=== PATIENT | male | born 1940 | race Caucasian/White ===

== ENCOUNTER 2025-02-01 14:00 | Outpatient (CLI) | payer MEDICARE, SELFPAY ==
--- OUTSIDE RECORDS SUMMARY | 2025-02-01 14:02 | XMS_ITS | Encounter Summary ---
Author Organization Healthcare Address [address] [place] [address] Care Team Providers Care Angiography Technologist Name Role Phone Pcp, No Primary Care Provider Unavailabl e Encounter Details Date Type Department Care Team (Late Contact Info) Description 10/07/2023 Lab Requisition [facility] [address] [place] [address] Lui Romeo MD [address] [place], [place] [id number] Encounter for general adult medical examination without abnormal findings Social History Tobacco Use Types Packs/Day Years Used Date Smoking Tobacco: Never Assessed Sex and Gender Information Value Date Recorded Sex Assigned at Not on file Legal Sex Male 8:16 PM EDT Gender Identity Not on file Sexual Orientation Not on file documented as of this encounter Plan of Treatment Upcoming Encounters Date Type Department Care Team (Late Contact Info) Description 05/07/2025 1:00 PM EST Consult Medical Office Building Surgical Specialties [address] [facility], [address] [place] [phone] Juan Zheng MD [facility] [address] documented as of this encounter Procedures Procedure Name Priority Date/Time Associated Diagnosis Comments ADDITIONAL SUSCEPTIBILITIES AND/OR IDENTIFICATION Routine 10/02/2023 9:27 AM EDT Encounter for general adult medical examination without abnormal findings ADDITIONAL SUSCEPTIBILITIES AND/OR IDENTIFICATION Routine 10/02/2023 9:27 AM EDT Encounter for general adult medical examination without abnormal findings ADDITIONAL SUSCEPTIBILITIES AND/OR IDENTIFICATION Routine 10/02/2023 9:27 AM EDT Encounter for general adult medical examination without abnormal findings documented in this encounter Results * (ABNORMAL) Additional Susceptibilities and/or Identification (10/02/2023 9:27 AM EDT) Culture Bacteroides thetaiotaomicron group(A) 10/08/2023 2:15 PM EDT [facility] Comment:This isolate has bee n identified using the FDA Approved MALDI BEW Globalyper CA System Blood 10/02/2023 9:27 AM EDT 10/07/2023 10:19 AM EDT Lui Romeo MD LAB MICROBIOLOGY - GENERAL OR DERABLES Final Result Performing Organization Address [facility] de Phone Number [facility] [address] [place] [address] * (ABNORMAL) Additional Susceptibilities and/or Identification (10/02/2023 9:27 AM EDT) Culture Clostridium innocuum(A) 10/08/2023 2:15 PM EDT [facility] Comment:This isolate has bee n identified using the FDA Approved MALDI BEW Globalyper CA System Blood 10/02/2023 9:27 AM EDT 10/07/2023 10:19 AM EDT Lui Romeo MD LAB MICROBIOLOGY - GENERAL OR DERABLES Final Result Performing Organization Address [facility] de Phone Number [facility]ALTHCARE [facility] [address] [place] [address] * (ABNORMAL) Additional Susceptibilities and/or Identification (10/02/2023 9:27 AM EDT) Culture Anaerobic gram negative torrie(A) 10/08/2023 2:15 PM EDT [facility] Comment: Note: - final ID=Phocaeicola [email or web address] This result was determined by MALDI tof mass spectrometry using the Vino Volo database and is for research use only. The organism value for this result has been updated. These results have been appended to the previously preliminary verified report. Blood 10/02/2023 9:27 AM EDT 10/07/2023 10:19 AM EDT us Lui Romeo MD LAB MICROBIOLOGY - GENERAL OR DERABLES Final Result [facility] [address] [place] [address] documented in this encounter Visit Diagnoses Diagnosis Encounter for general adult medical examination without abnormal findings documented in this encounter Care Teams Angiography Technologist Relationship Specialty Start Date End Date Pcp, No [address] [place] [address] PCP - General Family Medicine 10/02/23 documented as of this encounter
--- OUTSIDE RECORDS SUMMARY | 2025-02-01 14:02 | XMS_ITS | Encounter Summary ---
[facility] Organization [facility] Address [address] [place] [id number] Care Team Providers Care Printed Circuit Boards Laminator Name Role Phone Christofer William RESIDENT ASSISTANT Primary Care Provi blanca Encounter Details Date Type Department Care Team (Late st Contact Info) Description 10/09/2024 Results Follow-Up [facility] C[facility]IOLOG[facility] [address] [place] [phone] Marii Pandya MD [address] [place] [address] Social History Tobacco Use Types Packs/Day Years Used Date Smoking Tobacco: Former Cigarettes 1 10 Passive Smoke Exposure: Past Smokeless Tobacco: Former Chew Alcohol Use Standard Drinks/Week Comments Never 0 (1 standard drink = 0.6 oz pur e alcohol) Sex and Gender Information Value Date Recorded Sex Assigned at Not on file Legal Sex Male 7:45 AM EDT Gender Identity Not on file Sexual Orientation Not on file documented as of this encounter Plan of Treatment Upcoming Encounters Date Type Department Care Team (Late st Contact Info) Description 02/19/2025 2:30 PM EDT Office Visit [facility] C[facility] [address] [place] [place] [phone] Marii Pandya MD [address] [place] [address] 03/05/2025 1:30 PM EDT Office Visit [facility] ORTHOPEDICS & SPORTS MEDICINE [address] [place] [address] Diego Ayala MD [address] [id number] documented as of this encounter Visit Diagnoses Not on filedocumented in this encounter Care Teams Printed Circuit Boards Laminator Relationship Specialty Start Date End Date Christofer William APRN [address] [place] [address] [place] [address] PCP - General Nurse Practitioner 05/04/22 documented as of this encounter
--- OUTSIDE RECORDS SUMMARY | 2025-02-01 14:02 | XMS_ITS | Clinical Summary ---
Author Organization Healthcare Address [address] [place] [address] Care Team Providers Care Facetor Name Role Phone Pcp, No Primary Care Provider Unavailabl e Social History Tobacco Use Types Packs/Day Years Used Date Smoking Tobacco: Never Assessed Sex and Gender Information Value Date Recorded Sex Assigned at Not on file Legal Sex Male 8:16 PM EDT Gender Identity Not on file Sexual Orientation Not on file Last Filed Vital Signs Vital Sign Reading Time Taken Comments Blood Pressure 134/68 10/02/2023 7:35 PM EDT Pulse 60 10/02/2023 7:35 PM EDT Temperature 36.6 C (97.8 F) 10/02/2023 7:35 PM EDT Respiratory Rate 19 10/02/2023 7:35 PM EDT Oxygen Saturation 91% 10/02/2023 7:35 PM EDT Inhaled Oxygen Concentration - - Weight 77.1 kg (170 lb) 10/02/2023 1:29 PM EDT Height 182.9 cm (6') 10/02/2023 1:29 PM EDT Body Mass Index 23.06 10/02/2023 1:29 PM EDT Plan of Treatment Upcoming Encounters Date Type Department Care Team (Late st Contact Info) Description 05/07/2025 1:00 PM EST Consult Medical Office Building Surgical Specialties [address] [facility], [address] [place] [address] Juan Zheng MD [address] [address] Health Maintenance Due Date Last Done Comments [facility]-Depression Screening 1940 [facility]-/Child/Adol SDOH Screenings 1940 [facility]- SDOH Screenings 09/05/1957 [facility]-Adult SDOH Screenings 09/05/1957 [facility]-RSV Vaccine: 60+ Years or (1 - 1-dose 75+ series) 09/05/2014 [facility]-Zoster Vaccines (3 of 3) 07/29/2018 06/03/2018, 07/24/2009 [facility]-Medicare Annual Wellness (AWV) 09/23/2023 09/22/2022 [id number] Vaccine ( - season) 2024 03/13/2024, 12/25/2021, 03/03/2021, Additional history exists [facility]-Influenza Vaccine (#1) 01/29/202503/13, 04/10/2021, 03/18/2020, Additional history exists [facility]-DTaP,Tdap,and Td Vaccines (3 - Td or Tdap) 09/22/2032 09/22/2022, 06/04/2014, 03/30/2012, Additional history exists [facility]-Pneumococcal Vaccine: 50+ Years Completed 04/30/2017, 12/10/2016, 10/01/2014, Additional history exists [facility]-Hepatitis A Vaccines Aged Out 12/08/2018, 04/30 No longer eligible based on patient's age to complete this topic HPV Vaccines Aged Out No longer eligi ble based on patient's age to complete this topic [facility]-HIB Vaccines Aged Out No longer e ligible based on patient's age to complete this topic [facility]-IPV Vaccines Aged Out No longer e ligible based on patient's age to complete this topic [facility]-Rotavirus Vaccines Aged Out No lo nger eligible based on patient's age to complete this topic Insurance MEDICARE Care Teams Facetor Relationship Specialty Start Date End Date Pcp, Xiomara [address] [place] [address] PCP - General Family Medicine 10/02/23
--- OUTSIDE RECORDS SUMMARY | 2025-02-01 14:02 | XMS_ITS | Encounter Summary ---
Author Organization Healthcare Address [address] [place] [address] Care Team Providers Care Ice Cream Machine Operator Name Role Phone Pcp, No Primary Care Provider Unavailabl e Encounter Details Date Type Department Care Team (Late Contact Info) Description 10/12/2023 Lab Requisition [facility] [address] [place] [address] Lui Romeo MD [address] [place] [address] Encounter for general adult medical examination without [...] Medical Office Building Surgical Specialties [address] [facility], [address] [place] [phone] Juan Zheng MD [facility] [address] documented as of this encounter Procedures Procedure Name Priority Date/Time Associated Diagnosis Comments ADDITIONAL SUSCEPTIBILITIES AND/OR IDENTIFICATION Routine 10/02/2023 9:02 AM EDT Encounter for general adult medical examination without abnormal findings documented in this encounter Results * (ABNORMAL) Additional Susceptibilities and/or Identification (10/02/2023 9:02 AM EDT) Culture Cutibacterium acnes (formerly Propionibacterium acnes)(A) 10/14/2023 11:42 AM EDT [facility] Comment:This result was dete rmined by MALDI tof mass spectrometry using the Adeptence database and is for research use only. Culture Alistipes species(A) 09/28 11:42 AM EDT [facility] Comment: This result was determined by MALDI tof mass spectrometry using the Adeptence database and is for research use only. Note: - final ID= Alistipes putredinis Blood 10/02/2023 9:02 AM EDT 10/12/2023 10:47 AM EDT us Lui Romeo MD LAB MICROBIOLOGY - GENERAL OR DERABLES Final Result [facility] [address] [place] [address] documented in this encounter Visit Diagnoses Diagnosis Encounter for general adult medical examination without abnormal findings documented in this encounter Care Teams Ice Cream Machine Operator Relationship Specialty Start Date End Date Pcp, No [address] [place] [address] PCP - General Family Medicine 10/02/23 documented as of this encounter
--- OUTSIDE RECORDS SUMMARY | 2025-02-01 14:02 | XMS_ITS | Clinical Summary ---
Author Organization [facility] Address [address] [place] [id number] Care Team Providers Care Program Project Analyst Name Role Phone Christofer William INSPECTORS AND REGULATORY OFFICERS Primary Care Provi blanca Allergies Active Allergy Reactions Criticality Noted Date Comments Penicillins Other (See Comments) 03/17/2021 Makes the patient feel funny Medications atorvastatin (LIPITOR) 10 MG tablet Take 1 tablet by mouth every night at bedtime. 1 Active omeprazole (priLOSEC) 20 MG capsule Take 2 capsules by mouth Daily. 1 Active tamsulosin (FLOMAX) 0.4 MG capsule 24 hr capsule Daily. 2 Active levocetirizine (XYZAL) 5 MG tablet Take 1 tablet by mouth Every Evening. 2 Active multivitamin with minerals tablet tablet Take 1 tablet by mouth Daily. Active aspirin 81 MG EC tablet Take 1 tablet by mouth Daily. Active docusate sodium (COLACE) 100 MG capsule Take 1 capsule by mouth 2 (Two) Times a Day. Active lisinopril-hydro chlorothiazide (PRINZIDE,ZESTOR ETIC) 20-12.5 MG per tabletIndication s:Hypertension, unspecified type,Ascending aorta dilation Take 1 tablet by mouth Daily. 30 tablet 11 5 Active Symbicort 160-4.5 MCG/ACT inhaler Inhale 2 puffs twice a day by inhalation route. 5 Active Magnesium Oxide -Mg Supplement 400 (240 Mg) MG tablet Take 1 tablet by mouth Daily. 5 Active nystatin (MYCOSTATIN) 419828 UNIT/GM cream apply to the affected area(s) by topical route 2 times per day 5 Active Active Problems Problem Noted Date Diagnosed Date Ascending aorta dilation 03/07/2024 Assessment & Plan (08/17/2024 5:06 PM EDT): Orders: CT Angiogram Chest; Future Assessment & Plan (07/05/2024 6:56 PM EST): We were aware of this and monitoring it already. He is status CAT scan in August and 1 in January showing that it is stable. To minimize radiation we are going to repeat this again in August. Orders: lisinopril-hydrochlorothiazide (PRINZIDE,ZESTORETIC) 20-12.5 MG per tablet; Take 1 tablet by mouth Daily. Assessment & Plan (03/07/2024 2:25 PM EDT): Aneurysmal dilation of the ascending aorta noted on recent CT scan and Echocardiogram. -We will continue to monitor Degenerative arthritis of right knee 05/07/2021 Hypertension Assessment & Plan (07/05/2024 6:56 PM EST): Going to add lisinopril hctz and take lasix only prn. Want to keep his blood pressure under good control because of aneurysm. Orders: lisinopril-hydrochlorothiazide (PRINZIDE,ZESTORETIC) 20-12.5 MG per tablet; Take 1 tablet by mouth Daily. Assessment & Plan (03/07/2024 2:23 PM EDT): Hypertension is stable and controlled Continue current treatment regimen. Regular aerobic exercise. Blood pressure will be reassessed in 3 months. Assessment & Plan (08/10/2022 3:57 PM EDT): Hypertension is well controlled, blood pressures 124/74. Continue current medications. Athscl heart disease of chencho ve coronary artery w/o ang pctrs Assessment & Plan (03/07/2024 2:23 PM EDT): Coronary artery disease is stable. Continue current treatment regimen. Regular aerobic exercise. Cardiac status will be reassessed in 6 months. Assessment & Plan (08/10/2022 3:56 PM EDT): Coronary artery disease is stable. Cardiac status will be reassessed in 6 months. Continue current therapy. SOB (shortness of breath) Assessment & Plan (03/07/2024 2:22 PM EDT): He was admitted to [facility] on 02/25/2024 with shortness of breath after recent cholecystectomy surgery (02/22/2024). Evaluation in the ER was concerning for fluid overload, possibly flash pulmonary edema and he also had an elevated D-dimer. He was admitted for further testing and evaluation. CTA of chest did not show any PE. However, he did remain slightly hypoxic (91-92%) and was placed on oxygen. He is now using home oxygen at night. Echocardiogram showed normal LV size and function, mild to moderate aortic root dilation and mild aortic regurgitation. We discussed updating stress test due to worsening shortness of breath. However, it is most likely due to COPD and recent surgery. We discussed that he may need to use oxygen throughout the day as needed. He would like to hold off on any further testing at this time - Follow-up in 3 months to reassess symptoms. Report if symptoms worsen prior to follow-up visit Family History Medical History Relation Name Comments No Known Problems Father No Known Problems Mother Heart disease Other FAMILY HISTORY Relation Name Status Comments Brother X2 (Age 70) 1 BROTHER AT 70- MI1 BROTHER AT 44- CANCER Father (Age 92) Mother (Age 86) Other FAMILY HISTORY Social History Tobacco Use Types Packs/Day Years Used Date Smoking Tobacco: Former Cigarettes 1 10 Passive Smoke Exposure: Past Smokeless Tobacco: Former Chew Tobacco Cessation:Counseling Given: No Alcohol Use Standard Drinks/Week Comments Never 0 (1 standard drink = 0.6 oz pur e alcohol) Sex and Gender Information Value Date Recorded Sex Assigned at Not on file Legal Sex Male 7:45 AM EDT Gender Identity Not on file Sexual Orientation Not on file Last Filed Vital Signs Vital Sign Reading Time Taken Comments Blood Pressure 116/68 10/30/2024 1:05 PM EDT Pulse 84 08/16/2024 2:31 PM EDT Temperature - - Respiratory Rate - - Oxygen Saturation 90% 08/16/2024 2:31 PM EDT Inhaled Oxygen Concentration - - Weight 70.4 kg (155 lb 3.2 oz) 10/30/2024 1:05 P M EDT Height 174.6 cm (5' 8.74 ) 10/30/2024 1:05 PM ED T Body Mass Index 23.09 10/30/2024 1:05 PM EDT Plan of Treatment Upcoming Encounters Date Type Department Care Team (Late st Contact Info) Description 02/19/2025 2:30 PM EDT Office Visit [facility] CARDIOLOGY [address] [place] [phone] Marii Pandya MD [address] [place] [address] 03/05/2025 1:30 PM EDT Office Visit [facility] ORTHOPEDICS & SPORTS MEDICINE [address] [place] [address] Diego Macedo MD [address] [place] [address] Health Maintenance Due Date Last Done Comments RSV Vaccine - Adults (1 - 1- dose 75+ series) 09/05/2014 ANNUAL WELLNESS VISIT 09/23/2023 09/22/2022 COVID-19 Vaccine (2023-2 5 season) 2024 03/13/2024, 12/25/2021, 03/03/2021, Additional history exists INFLUENZA VACCINE 02/28/2025 03/13/2024, , 02/24/2022, Additional history exists TDAP/TD VACCINES (4 - Td or Tdap) 09/22/2032 09/22/2022, 03/30/2012, 02/26/2003 Pneumococcal Vaccine 50+ Completed 017, 10/01/2014, 06/24/2007 ZOSTER VACCINE Completed 06/03/2018, 12/29, 07/24/2009 Insurance [facility] Medicare [employer] PPO Care Teams Program Project Analyst Relationship Specialty Start Date End Date Christofer William APRN [address] [place] [address] PCP - General Nurse Practitioner 05/04/22
[2025-02-01 16:07] LABS: Free T4 (Free Thyroxine) 0.90 ng/dl (0.78-2.19)
[2025-02-01 16:14] LABS: Thyroid Stimulating Hormone 1.13 uIU/mL (0.465-4.68)
== END 2025-02-01 23:59 | disposition home or self-care (01) ==
LOC: LAB 14:00
PROVIDERS: PCP Nurse Practitioner Family; Visit Provider Student in an Organized Health Care Education/Training Program
DX: E04.1 Nontoxic single thyroid nodule (principal)
CPT/HCPCS: 36415; 84439; 84443

== ENCOUNTER 2025-02-09 13:18 | Outpatient (CLI) | payer MEDICARE, SELFPAY ==
--- OUTSIDE RECORDS SUMMARY | 2025-02-09 13:24 | XMS_ITS | Encounter Summary ---
Author Organization [employer] ([place], [place], [place], [place]) Address [address] [place] [address] Care Team Providers Care Construction Electrician Name Role Phone Unavailable Primary Care Provider Unavailabl e Encounter Details Date Type Department Care Team (Late st Contact Info) Description 10/03/2020 Transcribed Document [facility] [place] [facility] [place] [address] ProviderAna MD [facility] [place] [address] Social History Tobacco Use Types Packs/Day Years Used Date Smoking Tobacco: Never Assessed Sex and Gender Information Value Date Recorded Sex Assigned at Not on file Legal Sex Male 5:05 PM CDT Gender Identity Not on file Sexual Orientation Not on file documented as of this encounter Miscellaneous Notes * Cerner Conversion Note - Ana Wells MD - 10/03/2020 10:00 AM CDT Patient: SANJEEV NOWAK Age: 80 years Sex: Male : 1940 Associated Diagnoses: None Author: [facility] Basic Information Electronics Recycler: Monica Lamb MD Chief Complaint Angina; worsening Abnormal Stress 02/27/2020 History of Present Illness 80 year old male with history of Mild CAD per [facility] (2010), HTN, HLD, COPD with remote tobacco abuse and BPH. FC II. Patient has been having intermittent chest pains for several months. He had a mildly abnormal stress test in January of 2020. At that time, he decided to try medical management. However, he reports an increase in both frequency and intensity recently, sx described as pressure like lasting minutes, not clearly related to activity. He states he almost went to the ER. He would like to have [facility] at this time. *Note: Previously failed right radial access d/t tortuosity. Abnormal Stress: Mild inferior ischemia Patient presents today for elective LHC with Dr. Waleska Johnson. Review of Systems Constitutional: Negative except as documented in history of present illness. Eye: Negative except as documented in history of present illness. Ear/Nose/Mouth/Throat: Negative except as documented in history of present illness. Respiratory: Shortness of breath. Cardiovascular: Negative except as documented in history of present illness. Gastrointestinal: Negative except as documented in history of present illness. Genitourinary: Negative except as documented in history of present illness. Hematology/Lymphatics: Negative except as documented in history of present illness. Endocrine: Negative except as documented in history of present illness. Immunologic: Negative except as documented in history of present illness. Musculoskeletal: Negative except as documented in history of present illness. Integumentary: Negative except as documented in history of present illness. Neurologic: Alert and oriented X4. Psychiatric: Negative except as documented in history of present illness. Health Status No qualifying data available Home Medications (8) Active Advair Diskus 250 mcg-50 mcg inhalation powder 1 Puff, Inhalation, BID Bystolic 5 mg oral tablet 5 mg = 1 Tab, Oral, Daily calcium (as carbonate) 500 mg oral tablet, chewable 500 mg = 1 Tab, Chew, Daily fluticasone 50 mcg/inh nasal spray 1 Johnson, Nasal, BID omeprazole 20 mg oral delayed release capsule 20 mg = 1 Cap, Oral, Daily Singulair 10 mg oral tablet 10 mg = 1 Tab, Oral, QPM Vitamin B12 with Folic Acid sublingual tablet 1 Tab, SubLINgual, Daily Vitamin D3 1000 intl units oral capsule 1,000 Int Units = 1 Cap, Oral, Daily Allergies: Allergic Reactions (Selected) Severity Not Documented Penicillin- Swelling flushed and swelling flushed. 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 Social & Psychosocial Habits Past Medical History: Active CAD - Coronary artery disease (2700526987) COPD - Chronic obstructive pulmonary disease (735584979) HLD - Hyperlipidemia (751653687) HTN - Hypertension (7472067631) Family History: No family history items have been selected or recorded. Procedure history: Tonsillectomy. Bilateral inguinal hernia repair. Left knee replacement. Varicose veins. TURP x 2. COlonoscopy/EGD. Physical Examination VS/Measurements No qualifying data available General: Alert and oriented, No acute distress. Eye: Pupils are equal, round and reactive to light, Vision unchanged. HENT: Normocephalic, Oral mucosa is moist. Neck: Supple, Non-tender, No carotid bruit, No jugular venous distention. Respiratory: Lungs are clear to auscultation, Respirations are non-labored, Symmetrical chest wall expansion. Cardiovascular: Normal rate, Regular rhythm, No murmur, Good pulses equal in all extremities. Gastrointestinal: Soft, Non-distended, Normal bowel sounds. Musculoskeletal: Normal range of motion, Normal strength. Integumentary: Warm, Dry, [place]. Neurologic: Alert, Oriented. Psychiatric: Cooperative, Appropriate mood & affect. Review / Management Results review: No qualifying data available. Documentation reviewed: Records from referring physician, Reviewed prior records. Impression and Plan IMPRESSION: Recurrent limiting CP. Abnormal Lexiscan cardiolite: Inferior ischemia, EF 51%. Remote Mild CAD per [facility] (2010); R brachial A tortuosity preventing completion of cath from R radial approach. HTN HLD COPD with remote tobacco abuse (30 yrs ago) BPH PLAN; Left Heart Catheterization via L radial artery access. Risks and Benefits discussed. Patient wishes to proceed. CV medication recommendations pending cath findings. Emphasize smoking cessation. Post cath addendum: Mild CAD. Check proBNP, D-dimer. Start Atorvastatin 10 mg daily, SL Ntg. Non-cardiac CP evaluation w/ primary MD. Electronically signed by [place], [facility] Conversion [address] Tester Cerner at 09/15/2022 3:02 PM CDT documented in this encounter Plan of Treatment Not on file documented as of this encounter Visit Diagnoses Not on filedocumented in this encounter
--- OUTSIDE RECORDS SUMMARY | 2025-02-09 13:24 | XMS_ITS | Clinical Summary ---
Author Organization [employer] ([place], [place], [place], [place]) Address [address] [place] [address] Care Team Providers Care Over Hauler Helper Name Role Phone Unavailable Primary Care Provider Unavailabl e Social History Tobacco Use Types Packs/Day Years Used Date Smoking Tobacco: Never Assessed Sex and Gender Information Value Date Recorded Sex Assigned at Not on file Legal Sex Male 5:05 PM CDT Gender Identity Not on file Sexual Orientation Not on file Plan of Treatment Not on file
--- OUTSIDE RECORDS SUMMARY | 2025-02-09 13:24 | XMS_ITS | Encounter Summary ---
Author Organization [facility] Address [address] [place] [address] Care Team Providers Care Coating And Baking Operator Name Role Phone Christofer William SKIN PILER Primary Care Provi blanca Encounter Details Date Type Department Care Team (Late st Contact Info) Description 10/09/2024 Results Follow-Up [facility] [address] [place] [address] Marii Pandya MD [address] [place] [address] Social History Tobacco Use Types Packs/Day [...] Team (Late st Contact Info) Description 02/19/2025 2:15 PM EDT Office Visit [facility] [address] [place] [address] Anuradha Garcia APRN [address] [place] [address] 03/05/2025 1:30 PM EDT Office Visit [facility] [place] [id number] Diego Macedo MD [address] [address] documented as of this encounter Visit Diagnoses Not on filedocumented in this encounter Care Teams Coating And Baking Operator Relationship Specialty Start Date End Date Christofer William APRN [address] [place] [address] [place] [address] PCP - General Nurse Practitioner 05/04/22 documented as of this encounter
--- OUTSIDE RECORDS SUMMARY | 2025-02-09 13:24 | XMS_ITS | Encounter Summary ---
Author Organization Healthcare Address [address] [place] [address] Care Team Providers Care Real Property Appraiser Name Role Phone Pcp, No Primary Care Provider Unavailabl e Encounter Details Date Type Department Care Team (Late Contact Info) Description 10/07/2023 Lab Requisition [facility] [address] [place] [address] Lui Romeo MD [address] [place], [place] [id number] Encounter for general adult medical examination without [...] Medical Office Building Surgical [facility] [address] [facility], [address] [place] [id number] Juan Zheng MD [facility] [address] documented as of this encounter Procedures Procedure [...] n identified using the FDA Approved MALDI Dragon Armyyper CA System Blood 10/02/2023 9:27 AM EDT 10/07/2023 10:19 AM EDT Lui Romeo MD LAB MICROBIOLOGY - GENERAL OR DERABLES Final Result Performing Organization Address [facility] de Phone Number [facility] [address] [place] [address] * (ABNORMAL) Additional Susceptibilities and/or Identification (10/02/2023 9:27 AM EDT) Culture Clostridium innocuum(A) 10/08/2023 2:15 PM EDT [facility] Comment:This isolate has bee n identified using the FDA Approved MALDI Dragon Armyyper CA System Blood 10/02/2023 9:27 AM EDT 10/07/2023 10:19 AM EDT Lui Romeo MD LAB MICROBIOLOGY - GENERAL OR DERABLES Final Result Performing Organization Address [facility] de Phone Number [facility] [address] [place] [address] * (ABNORMAL) Additional Susceptibilities and/or Identification (10/02/2023 9:27 AM EDT) Culture Anaerobic gram negative torrie(A) 10/08/2023 2:15 PM EDT [facility] Comment: Note: - final ID=[email or web address] [email or web address] This result was determined by MALDI tof mass spectrometry using the [employer] database and is for research use only. The organism value for this result has been updated. These results have been appended to the previously preliminary verified report. Blood 10/02/2023 9:27 AM EDT 10/07/2023 10:19 AM EDT us Lui Romeo MD LAB MICROBIOLOGY - GENERAL OR DERABLES Final Result [facility] [address] [place] [address] documented in this encounter Visit Diagnoses Diagnosis Encounter for general adult medical examination without abnormal findings documented in this encounter Care Teams Real Property Appraiser Relationship Specialty Start Date End Date Pcp, No [address] [place] [address] PCP - General Family Medicine 10/02/23 documented as of this encounter
--- OUTSIDE RECORDS SUMMARY | 2025-02-09 13:24 | XMS_ITS | Encounter Summary ---
Author Organization [id number] ([place], [place], [place], [place]) Address [address] [place] [address] Care Team Providers Care Press Tender Name Role Phone Unavailable Primary Care Provider Unavailabl e Encounter Details Date Type Department Care Team (Late st Contact Info) Description 10/03/2020 Transcribed Document [facility] [place] Family Medicine [facility] [place] [address] ProviderAna MD [facility] [place] [address] Social History Tobacco Use Types Packs/Day Years Used Date Smoking Tobacco: Never Assessed Sex and Gender Information Value Date Recorded Sex Assigned at Not on file Legal Sex Male 5:05 PM CDT Gender Identity Not on file Sexual Orientation Not on file documented as of this encounter Miscellaneous Notes * Cerner Conversion Note - Ana Wells MD - 10/03/2020 2:45 PM CDT [facility] [place] [address] SANJEEV NOWAK :1940 Visit Time:10/03/2020 Your Visit Summary Your Care Team Admitting Physician - WALESKA TRUJILLO MD-CAR Attending Physician - WALESKA TRUJILLO MD-CAR Primary Care Physician - STEVEN ROBLEDO (REF), -MED Referring Physician - WALESKA TRUJILLO MD-CAR Your Diagnosis Abnormal result of other cardiovascular function study, Abnormal result of other cardiovascular function study Discharge Vitals Heart Rate (Monitored) 54 Respiratory Rate 21 Blood Pressure 145/71 Blood Pressure 184/86(Line) What to do next Instructions From Your Care Team No driving 24 hours. Rest/relax today. May shower tomorrow. No hot baths/swimming/or hot tubs for 5 days. Follow radial band care instruction sheet. Follow-Up Appointments Follow Up with CAITLYN WALLACE MD When Within As needed Where: Medications What How Much When Instructions Next Dose atorvastatin (atorvastatin 10 mg oral tablet) 1 Tablet(s) Oral At Bedtime Refills: 5 Pickup at [facility] nitroglycerin (Nitrostat 0.4 mg sublingual tablet) 1 Tablet(s) SubLINgual Every 5 minutes as needed for Chest Pain Refills: 5 not to exceed 3 doses/ 15 min--if pain persists, seek medical attention Pickup at [facility] aspirin (aspirin 81 mg oral delayed release tablet) 1 Tablet(s) Oral Every Day formoterol-glycopyrrolate (Bevespi Aerosphere 9 mcg-4.8 mcg/ inh inhalation aerosol) Inhalation Two Times A Day levocetirizine (levocetirizine 5 mg oral tablet) 1 Tablet(s) Oral Every Evening multivitamin (Vitamin B12 with Folic Acid sublingual tablet) 1 Tablet(s) SubLINgual Every Day omeprazole (omeprazole 20 mg oral delayed release capsule) 1 Capsule(s) Oral Every Day Pharmacy Information [facility]: [address] [place] [address] [phone] Take your medications faithfully. Do NOT skip medication. Do NOT stop taking medications without the direction of a physician. Carry a list of your medications with you at all times, and take this medication list with you to your first follow up visit. Report any side effects. Avoid herbal remedies unless discussed with your physician. As part of your treatment plan, your physician may have prescribed a limited course of a controlled substance. This medication may be given to help people with moderate or severe pain or for other medical conditions, but there are risks involved with treatment. Common side effects may include nausea, constipation, drowsiness, sweating, itching, dry mouth, and rash. More serious side effects may include cognitive and motor impairment, like problems with thinking, concentrating, alertness, and movement (e.g. slowed reflexes), and driving and operating heavy machinery can be dangerous. It is important for you to talk to your physician if you have these side effects or questions. These controlled substances can produce physical dependence and be habit-forming if taken for an extended period of time, which means that the body has gotten used to them and may experience withdrawal symptoms if they are abruptly stopped. Withdrawal symptoms can include runny nose, sweating, goose bumps, diarrhea, abdominal cramping, rapid heartbeat, difficulty sleeping, and nervousness. Please dispose of unused and medications per your retail pharmacy guidance. Allergies penicillin (swelling flushed, swelling flushed) Immunizations This Visit No Immunizations Found Education Materials Moderate Conscious Sedation, Adult, Care After These instructions provide you with information about caring for yourself after your procedure. Your health care provider may also give you more specific instructions. Your treatment has been planned according to current medical practices, but problems sometimes occur. Call your health care provider if you have any problems or questions after your procedure. What can I expect after the procedure? After your procedure, it is common: ??? To feel sleepy for several hours. ??? To feel clumsy and have poor balance for several hours. ??? To have poor judgment for several hours. ??? To vomit if you eat too soon. Follow these instructions at home: For at least 24 hours after the procedure: ??? Do not: ? Participate in activities where you could fall or become injured. ? Drive. ? Use heavy machinery. ? Drink alcohol. ? Take sleeping pills or medicines that cause drowsiness. ? Make important decisions or sign legal documents. ? Take care of children on your own. ??? Rest. Eating and drinking ??? Follow the diet recommended by your health care provider. ??? If you vomit: ? Drink water, juice, or soup when you can drink without vomiting. ? Make sure you have little or no nausea before eating solid foods. General instructions ??? Have a responsible adult stay with you until you are awake and alert. ??? Take rrpf-qoc-uzjhqrk and prescription medicines only as told by your health care provider. ??? If you smoke, do not smoke without supervision. ??? Keep all follow-up visits as told by your health care provider. This is important. Contact a health care provider if: ??? You keep feeling nauseous or you keep vomiting. ??? You feel light-headed. ??? You develop a rash. ??? You have a fever. Get help right away if: ??? You have trouble breathing. This information is not intended to replace advice given to you by your health care provider. Make sure you discuss any questions you have with your health care provider. Document Revised: 04/29/2018 Document Reviewed: 09/05/2016 [employer] Patient Education ?? 2020 [employer] FAQ ??? Patient COVID-19 testing Why do I need a COVID-19 test in the hospital? We are testing patients as part of an overall effort to ensure the safety of our patients, staff and providers, and to limit the spread of the novel coronavirus throughout our community. What happens if I test positive for COVID-19? Any scheduled elective procedure will be postponed and treatment for the coronavirus will follow the protocol that is currently in place. If you are admitted to the hospital, we will use droplet precautions for patients who test positive for COVID-19. If I???m a patient, should I wear a mask? Yes. When you are in your room alone, you may remove your mask. When anyone enters your room, you should put your mask back on. Will I be allowed to have visitors if I am admitted to the hospital with COVID-19? As part of the standard care for COVID-19 patients, visitors will not be allowed to protect them from potential exposure to the novel coronavirus. If you have a health care support person with you during a pending test and the test comes back positive, your visitor will be asked to leave and follow up with their primary care provider. Public health may reach out to them to complete contact tracing. Will my status as COVID-19 positive be reported? Because COVID-19 is a public health threat, all positive cases are reported through the local health department and the [place] Department for Public Health. Those organizations are responsible for monitoring public health threats. What is contact tracing? The public health departments at the state and local levels use contact tracing to prevent the spread of infectious disease. They will work to identify people who have COVID-19 and their contacts who may have been exposed. What does contact tracing involve? Typically, a contact tracer will interview patients with COVID-19 to identify everyone with whom they have had close contact during the time they may have been infectious and then notify those contacts of potential exposure and refer them for testing. They may monitor the contacts for symptoms of COVID-19 and connect the contacts with services they may need during a recommended self-quarantine period. The patient???s name is not revealed to anyone during the contact tracing interviews, even if a contact asks. Who would be considered a ???close contact?? ? According to the CDC, a close contact is defined as someone who was within 6 feet of an infected person for at least 15 minutes, starting from 48 hours before the person began feeling sick until the time the patient was isolated. What can a close contact expect during this process? A contact tracer from the health department will contact that person to inform them they have been exposed to COVID-19. If that happens, the contact should self-quarantine for 14 days, starting from the last date of possible exposure, monitor their health, wear a face covering and maintain social distancing ??? at least 6 feet from others at all times. Should a close contact seek medical care? Close contacts should take their temperature twice a day, watch for COVID-19 symptoms and notify the health department if they develop symptoms. They should also notify people with whom they have had recent close contact if they become ill. They should seek medical care if symptoms worsen or become severe, including trouble breathing, persistent pain or pressure in the chest, confusion, inability to wait or stay awake, or bluish lips or face. Steps to Help Prevent the Spread of COVID-19 if You Are Sick In all cases, follow the guidance of your health care provider and local health department. Your local health department determines the length of time for quarantine and will notify you with detailed information. Monitor your symptoms. Common symptoms of COVID-19 include fever, fatigue, diarrhea/vomiting, loss of taste and smell, and cough. Trouble breathing is a more serious symptom that means you should get medical attention. If you develop emergency warning signs for COVID-19 get medical attention immediately. Emergency warning signs include*: ??? Trouble breathing ??? Persistent pain or pressure in the chest ??? New confusion or inability to arouse ??? Bluish lips or face *This list is not all inclusive. Please consult your medical provider for any other symptoms that are severe or concerning. Call 911 if you have a medical emergency. If you have a medical emergency and need to call 911, notify the alodize machine operator that you have, or think you might have, COVID-19. If possible, put on a facemask before medical help arrives. Stay home except to get medical care. ??? Stay home: Most people with COVID-19 have mild illness and can recover at home without medical care. Do not leave your home, except to get medical care. Do not visit public areas. ??? Stay in touch with your doctor. Call before you get medical care. Be sure to get care if you have trouble breathing, or have any other emergency warning signs, or if you think it is an emergency. Separate yourself from other people in your home; this is known as home isolation. ??? Stay away from others: As much as possible, stay away from others. You should stay in a specific ???sick room?? if possible, and away from other people in your home. Use a separate bathroom, if available. Call ahead before visiting your doctor. ??? Call ahead: Many medical visits for routine care are being postponed or done by phone or telemedicine. If you have a medical appointment that cannot be postponed, call your doctor's office, and tell them you have or may have COVID-19. This will help the office protect themselves and other patients. If you are sick, wear a facemask in the following situations, if available. ??? If you are sick: You should wear a facemask, if available, when you are around other people (including before you enter a health care provider???s office). ??? If you are caring for others: If the person who is sick is not able to wear a facemask (for example, because it causes trouble breathing), then as their caregiver, you should wear a facemask when in the same room with them. Visitors, other than caregivers, are not recommended. Cover your coughs and sneezes. ??? Cover: Cover your mouth and nose with a tissue when you cough or sneeze. ??? Dispose: Throw used tissues into a lined trash can. ??? Wash hands: Immediately wash your hands with soap and water for at least 20 seconds. If soap and water are not available, clean your hands with an alcohol-based hand guide plant that contains at least 60% alcohol. Clean your hands often. ??? Wash hands: Wash your hands often with soap and water for at least 20 seconds when visibly dirty. This is especially important after blowing your nose, coughing or sneezing, and going to the bathroom, and before eating or preparing food. ??? Hand guide plant: Use an alcohol-based hand guide plant with at least 60% alcohol, covering all surfaces of your hands and rubbing them together until they feel dry. ??? Avoid touching: Avoid touching your eyes, nose and mouth with unwashed hands. Avoid sharing personal household items. ??? Do not share: Do not share dishes, drinking glasses, cups, eating utensils, towels or bedding with other people in your home. ??? Wash thoroughly after use: After using these items, wash them thoroughly with soap and water or put them in the international representative. Clean all high-touch surfaces every day. Clean high-touch surfaces in your isolation area (???sick room?? and bathroom) every day; let a caregiver clean and disinfect high-touch surfaces in other areas of the home. ??? Clean and disinfect: Routinely clean high-touch surfaces in your ???sick room?? and bathroom. Let someone else clean and disinfect surfaces in common areas, but not your bedroom and bathroom. ? If a caregiver or other person needs to clean and disinfect a sick person???s bedroom or bathroom, they should do so on an as-needed basis. The caregiver/other person should wear a mask and wait as long as possible after the sick person has used the bathroom. ? High-touch surfaces include phones, remote controls, counters, tabletops, doorknobs, bathroom fixtures, toilets, keyboards, tablets and bedside tables. ??? Clean and disinfect areas that may have blood, stool, or body fluids on them. ??? Household dental internship and disinfectants: Clean the area or item with soap and water or another detergent if it is dirty. Then, use a household disinfectant. ??? Be sure to follow the instructions on the label to ensure safe and effective use of the product. Many products recommend keeping the surface wet for several minutes to ensure germs are killed. Many also recommend precautions such as wearing gloves and making sure you have good ventilation during use of the product. ??? Most EPA-registered household disinfectants should be effective. A full list of disinfectants can be found here: https://www.epa.gov/pesticide-registration/ynaq-l-swqnlhegtswqy-jyt-sregkel-uc rs-cov-2 Radial Site Care This sheet gives you information about how to care for yourself after your procedure. Your health care provider may also give you more specific instructions. If you have problems or questions, contact your health care provider. What can I expect after the procedure? After the procedure, it is common to have: ??? Bruising and tenderness at the catheter insertion area. Follow these instructions at home: Medicines ??? Take gopu-cdu-voexxye and prescription medicines only as told by your health care provider. Insertion site care ??? Follow instructions from your health care provider about how to take care of your insertion site. Make sure you: ? Wash your hands with soap and water before you change your bandage (dressing). If soap and water are not available, use hand guide plant. ? Change your dressing as told by your health care provider. ? Leave stitches (sutures), skin glue, or adhesive strips in place. These skin closures may need to stay in place for 2 weeks or longer. If adhesive strip edges start to loosen and curl up, you may trim the loose edges. Do not remove adhesive strips completely unless your health care provider tells you to do that. ??? Check your insertion site every day for signs of infection. Check for: ? Redness, swelling, or pain. ? Fluid or blood. ? Pus or a bad smell. ? Warmth. ??? Do not take baths, swim, or use a hot tub until your health care provider approves. ??? You may shower 24???48 hours after the procedure, or as directed by your health care provider. ? Remove the dressing and gently wash the site with plain soap and water. ? Pat the area dry with a clean towel. ? Do not rub the site. That could cause bleeding. ??? Do not apply powder or lotion to the site. Activity ??? For 24 hours after the procedure, or as directed by your health care provider: ? Do not flex or bend the affected arm. ? Do not push or pull heavy objects with the affected arm. ? Do not drive yourself home from the hospital or clinic. You may drive 24 hours after the procedure unless your health care provider tells you not to. ? Do not operate machinery or power tools. ??? Do not lift anything that is heavier than 10 lb (4.5 kg), or the limit that you are told, until your health care provider says that it is safe. ??? Ask your health care provider when it is okay to: ? Return to work or school. ? Resume usual physical activities or sports. ? Resume sexual activity. General instructions ??? If the catheter site starts to bleed, raise your arm and put firm pressure on the site. If the bleeding does not stop, get help right away. This is a medical emergency. ??? If you went home on the same day as your procedure, a responsible adult should be with you for the first 24 hours after you arrive home. ??? Keep all follow-up visits as told by your health care provider. This is important. Contact a health care provider if: ??? You have a fever. ??? You have redness, swelling, or yellow drainage around your insertion site. Get help right away if: ??? You have unusual pain at the radial site. ??? The catheter insertion area swells very fast. ??? The insertion area is bleeding, and the bleeding does not stop when you hold steady pressure on the area. ??? Your arm or hand becomes pale, cool, tingly, or numb. These symptoms may represent a serious problem that is an emergency. Do not wait to see if the symptoms will go away. Get medical help right away. Call your local emergency services (911 in the [place] Do not drive yourself to the hospital. Summary ??? After the procedure, it is common to have bruising and tenderness at the site. ??? Follow instructions from your health care provider about how to take care of your radial site wound. Check the wound every day for signs of infection. ??? Do not lift anything that is heavier than 10 lb (4.5 kg), or the limit that you are told, until your health care provider says that it is safe. This information is not intended to replace advice given to you by your health care provider. Make sure you discuss any questions you have with your health care provider. Document Revised: 06/22/2018 Document Reviewed: 06/22/2018 Else[employer] Patient Education ?? 2020 [employer] Transradial Angiogram A transradial angiogram is an imaging test that is used to examine blood vessels. For this test, a long, thin tube (catheter) is inserted into an artery in the wrist (radial artery) and moved into the blood vessels that need to be checked. A dye (contrast dye) is injected into the blood vessels, and then X-rays are taken. The contrast dye makes the blood vessels show up better on X-rays to help your health care provider see any problems. You may have this test to check for problems that can affect blood flow through the blood vessels, such as: ??? A blocked or narrowed blood vessel. ??? A blood clot. ??? Abnormal connections between blood vessels. Tell a health care provider about: ??? Any allergies you have. ??? All medicines you are taking, including vitamins, herbs, eye drops, creams, and ggau-uwc-tpnxhri medicines. ??? Any problems you or family members have had with anesthetic medicines. ??? Any blood disorders you have. ??? Any surgeries you have had. ??? Any medical conditions you have or have had. ??? Whether you are or may be . What are the risks? Generally, this is a safe procedure. However, problems may occur, including: ??? Infection. ??? Bleeding. ??? Allergic reactions to medicines or dyes. ??? Damage to other structures or organs, such as the blood vessels, lungs, or heart. ??? Blood clots. ??? Blood flow through the radial artery stopping or slowing down. This is rare. What happens before the procedure? Medicines Ask your health care provider about: ??? Changing or stopping your regular medicines. This is especially important if you are taking diabetes medicines or blood thinners. ??? Taking medicines such as aspirin and ibuprofen. These medicines can thin your blood. Do not take these medicines unless your health care provider tells you to take them. ??? Taking qpmv-rpe-xsxlnza medicines, vitamins, herbs, and supplements. Exams and tests ??? You may have a physical exam. ??? You may have tests, including blood tests and X-rays. General instructions ??? Follow instructions from your health care provider about eating or drinking restrictions. ??? Do not use any products that contain nicotine or tobacco for at least 24 hours before the procedure. These products include cigarettes, e-cigarettes, and chewing tobacco. If you need help quitting, ask your health care provider. ??? Ask your health care provider: ? How your procedure site will be marked. ? What steps will be taken to help prevent infection. These may include: ? Washing skin with a germ-killing soap. ? Taking antibiotic medicine. ??? Plan to have someone take you home from the hospital or clinic. ??? If you will be going home right after the procedure, plan to have someone with you for 24 hours. What happens during the procedure? An IV will be inserted into one of your veins. ??? You may be given the following: ? A medicine to help you relax (sedative). ? A medicine that is injected into your wrist to numb the area near the radial artery (local anesthetic). ??? A needle will be inserted into your radial artery in your wrist. ??? A catheter will be inserted into your radial artery. The needle will help guide the catheter into your radial artery and will then be removed. ??? The catheter will be moved through your body to the desired area. An X-ray machine (fluoroscope) will help your health care provider place the catheter in the correct place in your body. ??? Contrast dye will be injected into the catheter and will travel to the blood vessels that are being examined. ??? X-ray images will be taken of how the dye flows through your blood vessels. While the images are being taken, you may be given instructions on breathing, swallowing, moving, or talking. ??? The catheter will be removed from your body. ??? A pressure (compression) wrap will be applied to your wrist to stop bleeding. The procedure may vary among health care providers and hospitals. What happens after the procedure? You will need to keep your wrist still for as long as told by your health care provider. ??? The pressure applied to your wrist will be gradually decreased until the compression wrap is removed. ??? Your blood pressure, heart rate, breathing rate, and blood oxygen level will be monitored until you leave the hospital or clinic. ??? You may continue to get fluids and medicines through an IV. ??? You may have soreness and bruising in your wrist. This is normal. This should get better within about 1 week. ??? Do not drive for 24 hours if you were given a sedative during your procedure. ??? You may have to wear compression stockings. These stockings help to prevent blood clots and lessen swelling in your legs. Summary ??? A transradial angiogram is an imaging test that is used to examine blood vessels and to check for problems that can affect blood flow. ??? For this test, a catheter is inserted into an artery in the wrist (radial artery) and moved into the blood vessels being examined. A dye (contrast dye) is injected into the blood vessels, and then X-rays are taken. ??? Before the procedure, follow instructions from your health care provider about changing or stopping your medicines. ??? Before the procedure, follow instructions from your health care provider about eating or drinking restrictions. ??? If you will be going home right after the procedure, plan to have someone take you home and stay with you for 24 hours. This information is not intended to replace advice given to you by your health care provider. Make sure you discuss any questions you have with your health care provider. Document Revised: 04/10/2019 Document Reviewed: 04/10/2019 [employer] Patient Education ?? 2020 [employer]. nitroglycerin (oral/sublingual) (JEOVANNY nnekae GLI ser in (OR al/sub RONNIE gwal)) GoNitro, Nitrolingual, Nitromist, Nitrostat, Nitro-Time What is the most important information I should know about nitroglycerin? You should not use this medicine if you are also using medicine to treat pulmonary arterial hypertension or erectile dysfunction. You should not use sublingual nitroglycerin if you have severe anemia, increased pressure inside your skull, circulation problems, chest pain that spreads to your jaw or shoulder, or signs of shock (pale skin, suddenly feeling light-headed). What is nitroglycerin? Nitroglycerin is used to treat or prevent attacks of chest pain (angina). Nitroglycerin may also be used for purposes not listed in this medication guide. What should I discuss with my healthcare provider before taking nitroglycerin? You should not use nitroglycerin if you are allergic to it, or if you are using medicine to treat pulmonary arterial hypertension, such as riociguat (Adempas). Do not take erectile dysfunction medicine (Viagra, Cialis, Levitra, Stendra, Staxyn, sildenafil, avanafil, tadalafil, vardenafil). Using erectile dysfunction medicine with nitroglycerin can cause a sudden and serious decrease in blood pressure. You should not use sublingual nitroglycerin if you have: ?? severe anemia (low red blood cells); ?? increased pressure inside the skull; ?? circulation problems or shock (pale skin, cold sweat, fast or irregular heartbeats, sudden weakness or feeling like you might pass out); or ?? heart attack symptoms--chest pain or pressure, pain spreading to your jaw or shoulder, nausea, sweating. Tell your doctor if you have ever had: ?? a heart attack or other heart problems; ?? a stroke or head injury; ?? low blood pressure; or ?? headaches. Tell your doctor if you are or . Nitroglycerin (oral/sublingual) is not approved for use by anyone younger than 18 years old. How should I take nitroglycerin? Follow all directions on your prescription label and read all medication guides or instruction sheets. Use the medicine exactly as directed. If you use too much nitroglycerin, it might not work as well in controlling your symptoms. Nitroglycerin is usually taken at the first sign of chest pain. You may use nitroglycerin sublingual within 5 to 10 minutes before an activity you think might cause chest pain. Try to rest or stay seated when you take nitroglycerin (may cause dizziness or fainting). Do not rinse or spit nitroglycerin powder for 5 minutes after using the medicine. Read and carefully follow any Instructions for Use provided with your medicine. Ask your doctor or pharmacist if you do not understand these instructions. Seek emergency medical attention if your chest pain gets worse or lasts more than 5 minutes, especially if you have trouble breathing or feel weak, dizzy, or nauseated, or lightheaded. You may feel a slight burning or stinging in your mouth when you use this medicine. This is not a sign of how well the medicine is working. Do not use more just because you do not feel a burning or stinging. This medicine can affect the results of certain medical tests. Tell any doctor who treats you that you are using nitroglycerin. If you take nitroglycerin on a regular schedule to prevent angina, do not stop taking it suddenly or you could have a severe attack of angina. Keep this medicine on hand at all times. Get your prescription refilled before you run out of medicine completely. Store nitroglycerin at room temperature away from moisture and heat. Keep the spray away from open flame or high heat, such as in a car on a hot day. The canister may explode if it gets too hot. What happens if I miss a dose? Since nitroglycerin is used when needed, you may not be on a dosing schedule. If you are on a schedule, the medicine as soon as you can, but skip the missed dose if your next dose is due in less than 2 hours. Do not use two doses at one time. What happens if I overdose? Seek emergency medical attention or call the Poison Help line at . An overdose of nitroglycerin can be fatal. Overdose symptoms may include a severe throbbing headache, confusion, fever, fast or pounding heartbeats, dizziness, vision problems, vomiting, bloody diarrhea, trouble breathing, cold or clammy skin, fainting, and seizures. What should I avoid while taking nitroglycerin? Avoid getting up too fast from a sitting or lying position, or you may feel dizzy. Drinking alcohol can increase certain side effects such as dizziness, drowsiness, feeling light-headed, or fainting. What are the possible side effects of nitroglycerin? Get emergency medical help if you have signs of an allergic reaction: hives; difficult breathing; swelling of your face, lips, tongue, or throat. Call your doctor at once if you have: ?? severe or throbbing headaches that do not become less severe with continued use of nitroglycerin; ?? pounding heartbeats or fluttering in your chest; ?? slow heart rate; ?? a light-headed feeling, like you might pass out; ?? blurred vision or dry mouth; or ?? heart attack symptoms--chest pain or pressure, pain spreading to your jaw or shoulder, nausea, sweating. Nitroglycerin can cause severe headaches. These headaches may gradually become less severe as you continue to use nitroglycerin. Do not stop taking this medicine. Ask your doctor before using any headache pain medication. Common side effects may include: ?? headache, dizziness; or ?? numbness, tingling, burning pain. This is not a complete list of side effects and others may occur. Call your doctor for medical advice about side effects. You may report side effects to FDA at 0-906-EMG-7661. What other drugs will affect nitroglycerin? Tell your doctor about all your current medicines, especially: ?? aspirin, heparin; ?? medicine used to treat blood clots; ?? blood pressure medication; or ?? ergot medicine--dihydroergotamine, ergotamine, ergonovine, methylergonovine. This list is not complete and many other drugs may affect nitroglycerin. This includes prescription and [id number] medicines, vitamins, and herbal products. Not all possible drug interactions are listed here. Where can I get more information? Your pharmacist can provide more information about nitroglycerin. Remember, keep this and all other medicines out of the reach of children, never share your medicines with others, and use this medication only for the indication prescribed. Every effort has been made to ensure that the information provided by [employer]') is accurate, up-to-date, and complete, but no guarantee is made to that effect. Drug information contained herein may be time sensitive. [employer] information has been compiled for use by healthcare practitioners and consumers in the [place] and therefore [employer] does not warrant that uses outside of the [place] are appropriate, unless specifically indicated otherwise. [employer] drug information does not endorse drugs, diagnose patients or recommend therapy. [employer] drug information is an informational resource designed to assist licensed healthcare practitioners in caring for their patients and/or to serve consumers viewing this service as a supplement to, and not a substitute for, the expertise, skill, knowledge and judgment of healthcare practitioners. The absence of a warning for a given drug or drug combination in no way should be construed to indicate that the drug or drug combination is safe, effective or appropriate for any given patient. [employer] does not assume any responsibility for any aspect of healthcare administered with the aid of information [employer] provides. The information contained herein is not intended to cover all possible uses, directions, precautions, warnings, drug interactions, allergic reactions, or adverse effects. If you have questions about the drugs you are taking, check with your doctor, nurse or pharmacist. Copyright 3664-1323 [employer]. Version: 15.01. Revision Date: 04/06/2019. atorvastatin (a TOR va sta tin) Lipitor What is the most important information I should know about atorvastatin? You should not take atorvastatin if you are or , or if you have liver disease. Tell your doctor about all your current medicines and any you start or stop using. Many drugs can interact, and some drugs should not be used together. Atorvastatin can cause the breakdown of muscle tissue, which can lead to kidney failure. Call your doctor right away if you have unexplained muscle pain, tenderness, or weakness especially if you also have fever, unusual tiredness, or dark urine. What is atorvastatin? Atorvastatin is used together with diet to lower blood levels of 'bad' cholesterol (low-density lipoprotein, or LDL), to increase levels of 'good' cholesterol (high-density lipoprotein, or HDL), and to lower triglycerides (a type of fat in the blood). Atorvastatin is used to treat high cholesterol, and to lower the risk of stroke, heart attack, or other heart complications in people with type 2 diabetes, coronary heart disease, or other risk factors. Atorvastatin is used in adults and children who are at least 10 years old. Atorvastatin may also be used for purposes not listed in this medication guide. What should I discuss with my healthcare provider before taking atorvastatin? You should not use atorvastatin if you are allergic to it, or if you have liver disease. Do not use if you are . This medicine can harm an unborn baby. Use effective control to prevent . Stop taking this medicine and tell your doctor at once if you become . Do not breastfeed while you are taking atorvastatin. Tell your doctor if you have ever had: ?? liver problems; ?? muscle pain or weakness; ?? kidney disease; ?? diabetes; ?? a thyroid disorder; or ?? if you drink more than 2 alcoholic beverages daily. Atorvastatin can cause the breakdown of muscle tissue, which can lead to kidney failure. This happens more often in women, in older adults, or people who have kidney disease or poorly controlled hypothyroidism (underactive thyroid). Atorvastatin is not approved for use by anyone younger than 10 years old. How should I take atorvastatin? Follow all directions on your prescription label and read all medication guides or instruction sheets. Your doctor may occasionally change your dose. Use the medicine exactly as directed. Take the medicine at the same time each day, with or without food. Do not break an atorvastatin tablet before taking it, unless your doctor has told you to. You may need to stop using atorvastatin for a short time if you have: ?? uncontrolled seizures; ?? an electrolyte imbalance (such as high or low potassium levels in your blood); ?? severely low blood pressure; ?? a severe infection or illness; or ?? surgery or a medical emergency. It may take up to 2 weeks before your cholesterol levels improve, and you may need frequent blood tests. Even if you have no symptoms, tests can help your doctor determine if this medicine is effective. Atorvastatin is only part of a complete treatment program that may also include diet, exercise, and weight control. Follow your doctor's instructions very closely. Store at room temperature away from moisture, heat, and light. What happens if I miss a dose? Use the medicine as soon as you can, but skip the missed dose if you are more than 12 hours late for the dose. Do not use two doses at one time. What happens if I overdose? Seek emergency medical attention or call the Poison Help line at . What should I avoid while taking atorvastatin? Avoid eating foods high in fat or cholesterol, or atorvastatin will not be as effective. Avoid drinking alcohol. It can raise triglyceride levels and may increase your risk of liver damage. Grapefruit may interact with atorvastatin and lead to unwanted side effects. Avoid drinking more than 1 liter of grapefruit juice while taking atorvastatin. What are the possible side effects of atorvastatin? Get emergency medical help if you have signs of an allergic reaction: hives; difficulty breathing; swelling of your face, lips, tongue, or throat. In rare cases, atorvastatin can cause a condition that results in the breakdown of skeletal muscle tissue, leading to kidney failure. Call your doctor right away if you have unexplained muscle pain, tenderness, or weakness especially if you also have fever, unusual tiredness, and dark colored urine. Also call your doctor at once if you have: ?? muscle weakness in your hips, shoulders, neck, and back; ?? trouble lifting your arms, trouble climbing or standing; ?? liver problems--upper stomach pain, weakness, tired feeling, loss of appetite, dark urine, jaundice (yellowing of the skin or eyes); or ?? kidney problems--little or no urinating, swelling in your feet or ankles, feeling tired or short of breath. Common side effects may include: ?? joint pain; ?? stuffy nose, sore throat; ?? diarrhea; or ?? pain in your arms or legs. This is not a complete list of side effects and others may occur. Call your doctor for medical advice about side effects. You may report side effects to FDA at 9-220-NFV-0200. What other drugs will affect atorvastatin? Certain other drugs can increase your risk of serious muscle problems, and it is very important that your doctor knows if you are using any of them. Tell your doctor about all your current medicines and any you start or stop using, especially: ?? other cholesterol-lowering medication; ?? antibiotic or antifungal medicine; ?? control pills; ?? medicine to prevent organ transplant rejection; ?? heart medication; or ?? medicine to treat hepatitis C or HIV. This list is not complete and many other drugs may affect atorvastatin. This includes prescription and [id number]-[id number] medicines, vitamins, and herbal products. Not all possible drug interactions are listed here. Where can I get more information? Your pharmacist can provide more information about atorvastatin. Remember, keep this and all other medicines out of the reach of children, never share your medicines with others, and use this medication only for the indication prescribed. Every effort has been made to ensure that the information provided by [employer] is accurate, up-to-date, and complete, but no guarantee is made to that effect. Drug information contained herein may be time sensitive. [employer] information has been compiled for use by healthcare practitioners and consumers in the [place] and therefore [employer] does not warrant that uses outside of the [place] are appropriate, unless specifically indicated otherwise. [employer] drug information does not endorse drugs, diagnose patients or recommend therapy. [employer] drug information is an informational resource designed to assist licensed healthcare practitioners in caring for their patients and/or to serve consumers viewing this service as a supplement to, and not a substitute for, the expertise, skill, knowledge and judgment of healthcare practitioners. The absence of a warning for a given drug or drug combination in no way should be construed to indicate that the drug or drug combination is safe, effective or appropriate for any given patient. [employer] does not assume any responsibility for any aspect of healthcare administered with the aid of information [employer] provides. The information contained herein is not intended to cover all possible uses, directions, precautions, warnings, drug interactions, allergic reactions, or adverse effects. If you have questions about the drugs you are taking, check with your doctor, nurse or pharmacist. Copyright 4788-2717 [employer]. Version: 22.. Revision Date: 07/09/2020. Emergency Awareness and Preventative Care STROKE is an EMERGENCY Every Minute Counts Act FAST and Check for these signs: FACE Does the face look uneven? ARM Does one arm drift down? SPEECH Does their speech sound strange? TIME Call at any sign of stroke Stroke Risk Factors Atrial Fibrillation (irregular heartbeat) Diabetes Family history of stroke Heart Disease Heavy alcohol use High Blood Pressure High Cholesterol Physical inactivity and obesity Smoking Cigarette Smoking The facts are clear, cigarette smoking will shorten your life. Smoking can cause many illnesses along the way. As a healthcare provider, we recommend that you stop smoking. Assistance with quitting is available by contacting 5-453-EYDANOW. This is a free resource providing counseling, support, and referral. Or you may contact your personal physician. National Suicide Prevention Lifeline: The National Suicide Prevention Lifeline is a national network of local crisis centers that provides free and confidential emotional support to people in suicidal crisis or emotional distress 24 hours a day, 7 days a week. Don't Wait! Stop a Heart Attack Before it Starts What is a heart attack? A heart attack is damage or to a part of the heart from severely decreased or lack of blood flow to the heart. Over time, arteries can become narrow from the buildup of fat and cholesterol, which is called plaque. The plaque can rupture causing a blood clot to form. When the blood clot forms, the artery can become severely narrowed or completely blocked, causing a heart attack. Heart attack is the leading cause of in the [place]. 85% of muscle damage occurs within the first 2 hours. Delay in the recognition of heart attack symptoms increases the chances of . Know the early symptoms of a heart attack: Nausea Feeling of fullness in chest Jaw Pain Pain that travels down one or both arms Fatigue/being tired Anxiety Back Pain Chest pressure, squeezing, or discomfort Shortness of breath Sweating, or a cold sweat Feeling of impending doom There are unusual signs of a heart attack, too! Women, the elderly, and diabetics may present with atypical symptoms: Fainting/dizziness Weakness Confusion Risk Factors for a Heart Attack Some heart disease risk factors, such as age and family history, cannot be changed. Others, like smoking and lack of exercise, can be changed. Smoking High Cholesterol High Blood Pressure Family History Obesity Age Gender (Males are at higher risk) Lack of Exercise Diabetes Diet Stress Excessive Alcohol Intake If you or someone you know is experiencing the signs and symptoms of a heart attack, DON???T DELAY. Call immediately and seek help. If someone collapses, perform CPR! Do not attempt to drive if you are having symptoms of heart attack. Hands-Only CPR Why Hands-Only CPR? Hands-Only CPR has been shown to be as effective as conventional CPR for cardiac arrests that occur outside of a hospital. Survival depends on immediately receiving CPR from someone nearby. How do you perform Hands-Only CPR? There are two easy steps: Call if you see a teen or adult collapse Push hard and fast in the center of the chest at a beat of 100 beats per minute. Save a life! 4 WAYS TO GET AHEAD OF SEPSIS SEPSIS is a MEDICAL EMERGENCY. Time matters! Infections put you and your family at risk for a life-threatening condition called sepsis. Sepsis is the body's extreme response to an infection. It is life-threatening, and without timely treatment, sepsis can rapidly lead to tissue damage, organ failure, and . Sepsis happens when an infection you already have-in your skin, lungs, urinary tract or somewhere else-triggers a chain reaction throughout your body. 1 PREVENT INFECTIONS Take good care of chronic conditions. Talk to your doctor about getting the recommended vaccines. 2 PRACTICE GOOD HYGIENE Wash your hands frequently. Keep cuts or open sores clean and covered until they are healed. 3 KNOW THE SYMPTOMS Confusion or disorientation Shortness of breath High heart rate Fever, shivering, or feeling very cold Extreme pain or discomfort Clammy or sweaty skin 4 ACT FAST Get medical care IMMEDIATELY if you suspect sepsis or if you have an infection that is not getting better or is getting worse. To learn more about sepsis and how to prevent infections, visit www.cdc.gov/sepsis. Test Results Laboratory or Other Results This Visit (last charted value for your 10/03/2020 visit) Hematology 10/03/2020 10:45 AM Platelet Count: 183 K/uL -- Normal range between ( 163 and 369 ) Cardiac Specific Markers 10/03/2020 12:14 PM ProBNP: 281 pg/mL -- Normal range between ( 0 and 450 ) Coagulation 10/03/2020 12:14 PM D Dimer Quant: 0.55 mg/L FEU -- Normal range between ( 0.00 and 0.58 ) Patient Name:SANJEEV NOWAK I have received and understand this information and was given the opportunity to ask questions. Patient/Die Cutter Apprentice Name: Patient/Die Cutter Apprentice Signature: Relationship to Patient: Clinician/Hospital Die Cutter Apprentice Signature: Date: documented in this encounter Plan of Treatment Not on file documented as of this encounter Visit Diagnoses Not on filedocumented in this encounter
--- OUTSIDE RECORDS SUMMARY | 2025-02-09 13:24 | XMS_ITS | Encounter Summary ---
Author Organization [employer] ([place], [place], [place], [place]) Address [address] [place] [address] Care Team Providers Care Salvage Cutter Name Role Phone Unavailable Primary Care Provider Unavailabl e Encounter Details Date Type Department Care Team (Late st Contact Info) Description 10/03/2020 Transcribed Document [facility] [place] [facility] [address] ProviderAna [place] [address] Social History Tobacco Use Types Packs/Day Years Used Date Smoking Tobacco: Never Assessed Sex and Gender Information Value Date Recorded Sex Assigned at Not on file Legal Sex Male 5:05 PM CDT Gender Identity Not on file Sexual Orientation Not on file documented as of this encounter Miscellaneous Notes * Cerner Conversion Note - Ana ProviderMD - 10/03/2020 10:49 AM CDT Pre Procedure Adult Entered On: 10/03/2020 11:01 EDT Performed On: 10/03/2020 10:49 EDT by Don Persaud RN Height and Weight, Clinical Dosing Height Source : Stated Height Entry Format : [place] Height, Feet : 6 ft(Converted to: 183 cm, 72 Inch) Height, Inches : 0 Inch(Converted to: 0 ft 0 Inch, 0.00 cm) Clinical Height : 182.88 cm Weight Source : Standing scale Weight Entry Format : [place] Clinical Dosing Weight : 79.55 kg Weight, Pounds : 175 lb Body Surface Area (BSA) : 2.01 m2 Body Mass Index : 23.8 kg/m2 [place] Body Weight : 77 kg Don Persaud RN - 10/03/2020 10:49 EDT Health Histories Smoking Status : Former smoker, quit more than 30 days ago Smokeless Tobacco Status : Never Implant/Device Type, Roll Shop Supervisor and Model : none Don Persaud RN - 10/03/2020 10:49 EDT Social History (As Of: 10/03/2020 11:01:28 EDT) Tobacco: Smoking Status Former smoker. Years of Use: 10. Packs/Tins Daily: 1. Comments: 12/31/2015 9:33 - DEAN AUGUST RN: quit at age 54 (Last Updated: 12/31/2015 09:33:08 EDT by DEAN AUGUST RN) Alcohol: Alcohol Use History No. (Last Updated: 10/03/2020 10:55:09 EDT by Don Persaud RN) Substance Abuse: Drug Use Hx: No. Use in Last 12 Months: No. (Last Updated: 10/03/2020 10:55:17 EDT by Don Persaud RN) Infectious Disease History Has the patient ever been tested for COVID-19? : Yes, Patient stated results Negative Date of COVID-19 test known? : Yes Date of COVID-19 Test : 10/01/2020 EDT Does patient have symptoms of COVID-19? : No COVID19 Screening : No Experiencing Infectious Disease Symptoms : No symptoms Physical contact outside US in the last 30 days : No Infectious Disease History : Chicken pox/Shingles, Measles, Mumps Tuberculosis Symptoms : None Don Persaud RN - 10/03/2020 10:49 EDT COVID19 PreProcedure Screening Is this an Emergent or Add on Procedure? : No Date PreProcedure COVID-19 test known? : Yes Date of PreProcedure COVID-19 : 09/29/2020 EDT Has patient been isolated since the test : Yes Exposed to COVID19 symptoms since test? : No Don Persaud RN - 10/03/2020 10:49 EDT Anesthesia/Transfusion History Family History of Anesthesia Reaction : No prior transfusion(s) Blood Transfusion Acceptable to Patient : Yes Transfusion History : Prior anesthesia without reaction Family History of Anesthesia Reaction : None Don Persaud RN - 10/03/2020 10:49 EDT Functional Assessment Living Situation : Home Current Home Treatments : None Don Persaud RN - 10/03/2020 10:49 EDT [place] Suicide Severity Rating Scale (C-SSRS) CSSRS Past Month Wish to be : No CSSRS Past Month Suicidal Thoughts : No CSSRS Lifetime Suicide Behavior : No Suicide Severity Rating Score : 0 Suicide Severity Rating : No Additional Care Required at this time Thoughts of Harming/Killing Others : No Don Persaud RN - 10/03/2020 10:49 EDT Psychosocial History Currently in Unsafe Situation : No Don Persaud RN - 10/03/2020 10:49 EDT Advance Directive Patient has Advance Directive *Q : Yes, Advance Directive not with the patient Advance Directive Type : Living will Copy Advance Directive Verified/on Chart : No Don Persaud RN - 10/03/2020 10:49 EDT General Info Support Person/Patient Environmental Service Aide : Yes Support Person/Pt Rep Name : Eleno Support Person/Pt Rep Contact Information : [phone] Want Family/Rep/Phys Notified of Admit : No Emergency Contact #1 : Eleno [place]ak Emergency Contact #1 Emergency Contact #1 Relationship : son Emergency Contact #2 : na Emergency Contact #2 Phone Number : na Emergency Contact #2 Relationship : na Chief Complaint : chest pain Information Obtained From : Patient Primary Language : Cuban Communication Barrier : None Station Jailer Needed : No Don Persaud RN - 10/03/2020 10:49 EDT Sleep Apnea Risk Assmt Hx of Obstructive Sleep Apnea Diagnosis : No Snore Loudly : Yes Tired, Fatigued, or Sleepy During Day : Yes Observed Stopping Breathing During Sleep : No Have/Are Being Treated for Hypertension : Yes BMI Greater Than 35 kg/m2 : No Age over 50 Years Old : Yes Neck Circumference Greater Than 40 cm : No Gender Male : Yes STOP-BANG Sleep Apnea Risk Level Score : 5 Don Persaud RN - 10/03/2020 10:49 EDT Farooq Scale Farooq Sensory Perception : No impairment Farooq Moisture : Rarely moist Farooq Activity : Walks occasionally Farooq Mobility : No limitation Farooq Nutrition : Adequate Farooq Friction and Shear : No apparent problem Farooq Score : 21 Don Persaud RN - 10/03/2020 10:49 EDT Fall Risk Scales ABCs Fall Injury Risk Identification : None WATSON Hx Falls Immediate/Within 3 Months : Yes Watson Secondary Diagnosis : Yes WATSON Use of Ambulatory Aid : None WATSON IV Therapy or IV Access : Yes Watson Gait/Transferring : Normal, bedrest, immobile Watson Mental Status : Oriented to own ability Watosn Fall Risk Score : 60 WATSON Fall Scale Risk Level : 46 or > High Risk [place] Fall Interventions : Adequate lighting, Assistive devices within reach, Bed in low position, Call device within reach, Fall prevention handout/education per facility policy, Hourly comfort/safety rounds, Non-slip footwear, Personal items within reach, Reinforced to call for assistance before getting out of bed, Room free of clutter/spills, Upper side-rails up, Wheels locked, Wires/Cords secured Don Persaud RN - 10/03/2020 10:49 EDT Valuables and Belongings Valuables and Belongings : Clothing, Jewelry, Personal devices, Personal items, No comfort items, No assistive devices, No respiratory devices, No medications Clothing : Common streetwear Clothing Disposition : With patient Personal Device Disposition : With patient Jewelry : Ring Jewelry Disposition : With patient Personal Devices : Glasses, Other: plate Personal Items : Cell phone, Wallet Personal Items Disposition : With family, Declines to send to security/safe Don Persaud RN - 10/03/2020 10:49 EDT Story Coma Story Best Motor Response : Obey commands Story Best Verbal Response : Oriented Galen Eye Opening Response : Spontaneous Galen Coma Score : 15 Don Persaud RN - 10/03/2020 10:49 EDT documented in this encounter Plan of Treatment Not on file documented as of this encounter Visit Diagnoses Not on filedocumented in this encounter
--- OUTSIDE RECORDS SUMMARY | 2025-02-09 13:24 | XMS_ITS | Referral Summary ---
Author Organization [employer] ([place], [place], [place], [place]) Address [address] [place] [address] Care Team Providers Care Powder Line Repairer Name Role Phone Unavailable Primary Care Provider [...]
--- OUTSIDE RECORDS SUMMARY | 2025-02-09 13:24 | XMS_ITS | Encounter Summary ---
Author Organization [employer] ([place], [place], [place], [place]) Address [address] [place] [address] Care Team Providers Care Graduating Machine Operator Name Role Phone Unavailable Primary Care Provider Unavailabl e Encounter Details Date Type Department Care Team (Late st Contact Info) Description 10/03/2020 Transcribed Document [facility] [place] [facility] [place] [address] ProviderAna MD [facility] [place] [address] Social History Tobacco Use Types Packs/Day Years Used Date Smoking Tobacco: Never Assessed Sex and Gender Information Value Date Recorded Sex Assigned at Not on file Legal Sex Male 5:05 PM CDT Gender Identity Not on file Sexual Orientation Not on file documented as of this encounter Miscellaneous Notes * Cerner Conversion Note - Ana ProviderMD - 10/03/2020 2:54 PM CDT Nursing Discharge Summary Entered On: 10/03/2020 14:54 EDT Performed On: 10/03/2020 14:54 EDT by Don Persaud RN Discharge Documentation Discharge Date/Time : 10/03/2020 15:00 EDT Patient Disposition, General : Discharge Discharge To : Home with ambulatory/outpatient follow-up Mode Of Departure, General Discharge : Private vehicle Accompanied By, Discharge : Son IV Discontinued : Yes Personal Belongings With Patient : Yes Pt's Own Supply of Medications Returned : No Prescriptions Given to Patient : Electronically sent Medications Given to Patient : No Discharge Instructions Reviewed With, Opportunity For Questions Given : Patient, Son Patient Education Completed : Yes Teaching Method : Explanation, Printed materials Don Persaud RN - 10/03/2020 14:54 EDT documented in this encounter Plan of Treatment Not on file documented as of this encounter Visit Diagnoses Not on filedocumented in this encounter
--- OUTSIDE RECORDS SUMMARY | 2025-02-09 13:24 | XMS_ITS | Encounter Summary ---
Author Organization [employer] ([place], [place], [place], [place]) Address [address] [place] [address] Care Team Providers Care Tower Excavator Operator Name Role Phone Unavailable Primary Care Provider Unavailabl e Encounter Details Date Type Department Care Team (Late st Contact Info) Description 10/03/2020 Transcribed Document [facility] [place] Family [facility] [place] [address] [facility] [place] [address] Social History Tobacco Use Types Packs/Day Years Used Date Smoking Tobacco: Never Assessed Sex and Gender Information Value Date Recorded Sex Assigned at Not on file Legal Sex Male 5:05 PM CDT Gender Identity Not on file Sexual Orientation Not on file documented as of this encounter Miscellaneous Notes * Cerner Conversion Note - Ana Wells MD - 10/03/2020 12:25 PM CDT DATE OF SERVICE: 10/03/2020 LEFT HEART CATHETERIZATION REPORT INDICATION: Recurrent chest pain, dyspnea equivalent angina, inferior ischemia by Lexiscan Cardiolite perfusion study. ADDITIONAL REFERRING PHYSICIANS: Dr. Adam Arrieta PROCEDURE: Standard left heart catheterization technique. A 5/6-Israeli sheath was placed into the left distal radial artery using ultrasound guidance, 5 mg verapamil, 50 units/kg heparin were administered via the radial artery sheath. JL4, JR4 diagnostic catheters were used for selective angiography of the left and right coronary arteries. A JL4 diagnostic catheter was also used to advance into the left ventricle where pressures were measured. Left ventriculogram was not performed. Following the diagnostic catheterization, the radial artery sheath was removed and the access site successfully compressed using a TR band. The patient received moderate conscious sedation for the procedure including intravenous Versed and fentanyl. He was monitored for more than 30 minutes and remained hemodynamically stable without respiratory distress. HEMODYNAMICS: Left ventricle 130/10 mmHg, aorta 130/70 mmHg. DIAGNOSES: 1. Mild coronary artery atherosclerosis. 2. Normal left ventricular filling pressure without gradient across the aortic valve. CORONARY ANATOMY: 1. Left main trunk: Short left main trunk. 2. LAD: Large caliber vessel, which gives rise to moderate caliber first diagonal branch, small caliber second diagonal branch, moderate caliber bifurcating third diagonal branch before extending beyond the apex. Mild atherosclerosis present in the LAD diagonal branches. There is mild calcification in the proximal LAD. 3. Circumflex artery: Large caliber vessel, which gives rise to a tiny high lateral branch, large caliber lateral branch and moderate caliber posterolateral branch. Mild atherosclerosis is present in the circumflex artery. 4. Right coronary artery: Dominant vessel. Large caliber vessel, which gives rise to a small caliber posterior descending artery and moderate caliber posterolateral branch. Mild atherosclerosis present in the right coronary artery. 5. Left ventricle: Normal left ventricular filling pressure without gradient across the aortic valve. IMPRESSION: Angiographically, the patient has mild coronary artery atherosclerosis. There is no indication for revascularization. RECOMMENDATIONS: Risk factor modification, medical management is recommended. /[id number] Nilay Johnson MD SSL/AQ / SSL / MODL /[id number] CC: Dr. Adam Pandya MD documented in this encounter Plan of Treatment Not on file documented as of this encounter Visit Diagnoses Not on filedocumented in this encounter
--- OUTSIDE RECORDS SUMMARY | 2025-02-09 13:24 | XMS_ITS | Encounter Summary ---
Author Organization [employer] ([place], [place], [place], [place]) Address [address] [place] [address] Care Team Providers Care Can Pusher Name Role Phone Unavailable Primary Care Provider Unavailabl e Encounter Details Date Type Department Care Team (Late st Contact Info) Description 10/03/2020 Transcribed Document [facility] [place] [address] [place] [address] ProviderAna MD [facility] [place] [address] Social History Tobacco Use Types Packs/Day Years Used Date Smoking Tobacco: Never Assessed Sex and Gender Information Value Date Recorded Sex Assigned at Not on file Legal Sex Male 5:05 PM CDT Gender Identity Not on file Sexual Orientation Not on file documented as of this encounter Miscellaneous Notes * Cerner Conversion Note - Historical ProviderMD - 10/03/2020 2:16 PM CDT Stroke/Warfarin Instructions Entered On: 10/03/2020 14:16 EDT Performed On: 10/03/2020 14:16 EDT by Don Persaud RN Stroke/Warfarin Instructions Stroke/TIA Discharge Ins : N/A Warfarin Discharge Ins : N/A Dno Persaud RN - 10/03/2020 14:16 EDT documented in this encounter Plan of Treatment Not on file documented as of this encounter Visit Diagnoses Not on filedocumented in this encounter
--- OUTSIDE RECORDS SUMMARY | 2025-02-09 13:24 | XMS_ITS | Clinical Summary ---
[facility] Address [address] [place] [id number] Care Team Providers Care Mail Room Clerk Name Role Phone Christofer William DOOR MAKER Primary Care Provi blanca Allergies Active Allergy [...] by mouth Daily. 5 Active nystatin (MYCOSTATIN) 375456 UNIT/GM cream apply to the affected area(s) [...] 2:22 PM EDT): He was admitted to [facility] on 02/25/2024 with shortness of breath after [...] Description 02/19/2025 2:15 PM EDT Office Visit [facility] [address] [place] [address] Anuradha Garcia APRN [address] [place] [address] 03/05/2025 1:30 PM EDT Office Visit [facility] [address] [place] [address] Diego Macedo MD [address] [id number] Health Maintenance Due Date Last Done Comments RSV Vaccine - Adults (1 - 1- dose 75+ series) 09/05/2014 ANNUAL WELLNESS VISIT 09/23/2023 09/22/2022 COVID-19 Vaccine (2023-2 5 season) 2025 03/13/2024, 12/25/2021, 03/03/2021, Additional history exists INFLUENZA VACCINE 02/28/2025 03/13/2024, , 02/24/2022, Additional history exists TDAP/TD VACCINES (4 - Td or Tdap) 09/22/2032 09/22/2022, 03/30/2012, 02/26/2003 Pneumococcal Vaccine 50+ Completed 017, 10/01/2014, 06/24/2007 ZOSTER VACCINE Completed 06/03/2018, 12/29, 07/24/2009 Insurance [facility] Medicare [employer] PPO Care Teams Mail Room Clerk Relationship Specialty Start Date End Date Christofer William APRN [address] [place] [address] PCP - General Nurse Practitioner 05/04/22
--- OUTSIDE RECORDS SUMMARY | 2025-02-09 13:24 | XMS_ITS | Encounter Summary ---
Author Organization [employer] ([place], [place], [place], [place]) Address [address] [place] [address] Care Team Providers Care Senior Product Designer Name Role Phone Unavailable Primary Care Provider Unavailabl e Encounter Details Date Type Department Care Team (Late st Contact Info) Description 10/03/2020 Transcribed Document [facility] [place] [facility] [place] [address] ProviderAna MD [address] [place] [address] Social History Tobacco Use Types Packs/Day Years Used Date Smoking Tobacco: Never Assessed Sex and Gender Information Value Date Recorded Sex Assigned at Not on file Legal Sex Male 5:05 PM CDT Gender Identity Not on file Sexual Orientation Not on file documented as of this encounter Miscellaneous Notes * Cerner Conversion Note - Ana Wells MD - 10/03/2020 2:14 PM CDT Patient Education Materials Follows: Moderate Conscious Sedation, Adult, Care After These [...] you are awake and alert. ??? Take lipt-bef-kovtxuh and prescription medicines only as told by [...] provider. Document Revised: 04/29/2018 Document Reviewed: 09/05/2016 [employer] Patient Education ? 2020 [email or web address]. FAQ - Patient COVID-19 testing Why do I need [...] patients who test positive for COVID-19. If I'm a patient, should I wear a mask? [...] through the local health department and the [place] Department for Public Health. Those organizations are [...] need during a recommended self-quarantine period. The patient's name is not revealed to anyone during the contact tracing interviews, even if a contact asks. Who would be considered a close contact ? According to the CDC, a close [...] a face covering and maintain social distancing - at least 6 feet from others at [...] and need to call 911, notify the fur machine operator that you have, or think [...] others. You should stay in a specific sick room if possible, and away from other people [...] (including before you enter a health care provider's office). ??? If you are caring for [...] clean your hands with an alcohol-based hand welt stitch cleaner that contains at least 60% alcohol. Clean your hands often. ??? Wash hands: Wash your hands often with soap and water for at least 20 seconds when visibly dirty. This is especially important after blowing your nose, coughing or sneezing, and going to the bathroom, and before eating or preparing food. ??? Hand welt stitch cleaner: Use an alcohol-based hand welt stitch cleaner with at least 60% alcohol, covering all [...] and water or put them in the junior recruiter. Clean all high-touch surfaces every day. Clean high-touch surfaces in your isolation area ( sick room and bathroom) every day; let a caregiver clean and disinfect high-touch surfaces in other areas of the home. ??? Clean and disinfect: Routinely clean high-touch surfaces in your sick room and bathroom. Let someone else clean and disinfect surfaces in common areas, but not your bedroom and bathroom. ? If a caregiver or other person needs to clean and disinfect a sick person's bedroom or bathroom, they should do so [...] or body fluids on them. ??? Household dough braker and disinfectants: Clean the area or item with soap and water or another detergent if it is dirty. Then, use a household disinfectant. ?? Be sure to follow the instructions on the label to ensure safe and effective use of the product. Many products recommend keeping the surface wet for several minutes to ensure germs are killed. Many also recommend precautions such as wearing gloves and making sure you have good ventilation during use of the product. ?? Most EPA-registered household disinfectants should be effective. A full list of disinfectants can be found here: https://www.epa.gov/pesticide-registration/retr-h-djrdgebdoesel-hyd-etkkjic-tu rs-cov-2 Radial Site Care This sheet gives [...] these instructions at home: Medicines ??? Take prix-zin-cfrnepi and prescription medicines only as told by your health care provider. Insertion site care ??? Follow instructions from your health care provider about how to take care of your insertion site. Make sure you: ? Wash your hands with soap and water before you change your bandage (dressing). If soap and water are not available, use hand welt stitch cleaner. ? Change your dressing as told by [...] care provider approves. ??? You may shower 24?48 hours after the procedure, or as directed [...] provider. Document Revised: 06/22/2018 Document Reviewed: 06/22/2018 [employer] Patient Education ? 2020 [employer]. Transradial Angiogram A transradial angiogram is an [...] including vitamins, herbs, eye drops, creams, and ovgz-jrw-glohjok medicines. ??? Any problems you or family [...] tells you to take them. ??? Taking zret-nga-gypebnq medicines, vitamins, herbs, and supplements. Exams and [...] provider. Document Revised: 04/10/2019 Document Reviewed: 04/10/2019 [employer] Patient Education ? 2020 [employer] documented in this encounter Plan of Treatment Not on file documented as of this encounter Visit Diagnoses Not on filedocumented in this encounter
--- OUTSIDE RECORDS SUMMARY | 2025-02-09 13:24 | XMS_ITS | Clinical Summary ---
Author Organization [facility] Address [address] [place] [address] Care Team Providers Care Final Assembler Name Role Phone Pcp, No Primary Care [...] Medical Office Building Surgical Specialties [address] [facility], [address] [place] [address] Juan Zheng MD [address] [address] Health Maintenance Due Date Last Done Comments [facility]-Depression Screening 1940 [facility]-Infant/Child/Adol SDOH Screenings 1940 [facility]- SDOH Screenings 09/05/1957 [facility]-Adult SDOH Screenings 09/05/1957 [facility]-RSV Vaccine: 60+ Years or (1 - 1-dose 75+ series) 09/05/2014 [facility]-Zoster Vaccines (3 of 3) 07/29/2018 06/03/2018, 07/24/2009 [facility]-Medicare Annual Wellness (AWV) 09/23/2023 09/22/2022 [id number] Vaccine ( - season) 2025 03/13/2024, 12/25/2021, 03/03/2021, Additional history exists [facility]-Influenza [...] complete this topic Insurance MEDICARE Care Teams Final Assembler Relationship Specialty Start Date End Date Pcp, Xiomara [address] [place] [address] PCP - General Family Medicine 10/02/23
--- OUTSIDE RECORDS SUMMARY | 2025-02-09 13:24 | XMS_ITS | Encounter Summary ---
Author Organization [facility] Address [address] [place] [address] Care Team Providers Care Director Fraud Name Role Phone Pcp, No Primary Care Provider Unavailabl e Encounter Details Date Type Department Care Team (Late Contact Info) Description 10/12/2023 Lab Requisition [facility] [address] [place] [address] Lui Romeo MD [address] [place] [address] Encounter for general adult medical [...] Medical Office Building Surgical Specialties [address] [facility], [address] [place] [id number] Juan Zheng MD [facility] [address] documented as of this encounter Procedures Procedure [...] by MALDI tof mass spectrometry using the [employer] database and is for research use only. Culture Alistipes species(A) 09/28 11:42 AM EDT HEALTHCARE LAB Comment: This result was determined by MALDI tof mass spectrometry using the [employer] database and is for research use only. Note: - final ID= Alistipes putredinis Blood 10/02/2023 9:02 AM EDT 10/12/2023 10:47 AM EDT us Lui Romeo MD LAB MICROBIOLOGY - GENERAL OR DERABLES Final Result [facility] [address] [place] [address] documented in this encounter Visit Diagnoses Diagnosis Encounter for general adult medical examination without abnormal findings documented in this encounter Care Teams Director Fraud Relationship Specialty Start Date End Date Pcp, No [address] [place] [address] PCP - General Family Medicine 10/02/23 documented as of this encounter
--- NOTE | 2025-02-09 14:00 | US_ITS ---
FINAL REPORT CLINICAL HISTORY: h/o thyroid nodule FINDINGS: THYROID ULTRASOUND FINDINGS: SIZE: Normal ECHOGENICITY: Homogeneous LESIONS: Numerous mildly heterogeneous isoechoic nodules are noted throughout the right thyroid lobe. At least 4 are identified. These are all classified as TR 3 nodules. Only one exceeds 1 cm in size measuring 15 x 11 x 6 mm. There is a dominant heterogeneous isoechoic mass of the left lobe measuring 31 x 20 x 17 mm also classified as TR 3. OTHER: No additional findings IMPRESSION: Multinodular goiter with dominant lesion of the left side as above TI-RADS 3 RECOMMENDATION: Ultrasound directed FNA of left thyroid lesion Authenticated and ERN
== END 2025-02-09 23:59 | disposition home or self-care (01) ==
LOC: RAD 13:19
PROVIDERS: PCP Nurse Practitioner Family; Visit Provider Student in an Organized Health Care Education/Training Program
DX: E04.2 Nontoxic multinodular goiter (principal)
CPT/HCPCS: 76536

== ENCOUNTER 2025-02-16 08:40 | Outpatient (CLI) | payer MEDICARE, SELFPAY ==
--- OUTSIDE RECORDS SUMMARY | 2025-02-16 08:43 | XMS_ITS | Encounter Summary ---
Author Organization Healthcare Address [address] [place] [address] Care Team Providers Care Application Development Intern Name Role Phone Pcp, No Primary Care Provider Unavailabl e Encounter Details Date Type Department Care Team (Late Contact Info) Description 10/07/2023 Lab Requisition [facility] [address] [place] [address] Lui Romeo MD [address] [place], [place] [id number] Encounter for general adult medical examination without [...] Medical Office Building Surgical Specialties [address] [facility], [address] [place] [id number] Juan Zheng MD [facility] [address] documented as of this encounter Procedures Procedure [...] n identified using the FDA Approved MALDI Provasculonyper CA System Blood 10/02/2023 9:27 AM EDT 10/07/2023 10:19 AM EDT Lui Romeo MD LAB MICROBIOLOGY - GENERAL OR DERABLES Final Result Performing Organization Address [facility] de Phone Number [facility] [address] [place] [address] * (ABNORMAL) Additional Susceptibilities and/or Identification (10/02/2023 9:27 AM EDT) Culture Clostridium innocuum(A) 10/08/2023 2:15 PM EDT [facility] Comment:This isolate has bee n identified using the FDA Approved MALDI Provasculonyper CA System Blood 10/02/2023 9:27 AM EDT 10/07/2023 10:19 AM EDT Lui Romeo MD LAB MICROBIOLOGY - GENERAL OR DERABLES Final Result Performing Organization Address [facility] de Phone Number [facility]ALTH[facility]ARE [facility] [address] [place] [address] * (ABNORMAL) Additional Susceptibilities and/or Identification (10/02/2023 9:27 AM EDT) Culture Anaerobic gram negative torrie(A) 10/08/2023 2:15 PM EDT [facility] Comment: Note: - final ID=Phocaeicola massiliensis This result was determined by MALDI tof mass spectrometry using the [employer] database and is for research use only. The organism value for this result has been updated. These results have been appended to the previously preliminary verified report. Blood 10/02/2023 9:27 AM EDT 10/07/2023 10:19 AM EDT us Lui Romeo MD LAB MICROBIOLOGY - GENERAL OR DERABLES Final Result [facility] [address] [place] [address] documented in this encounter Visit Diagnoses Diagnosis Encounter for general adult medical examination without abnormal findings documented in this encounter Care Teams Application Development Intern Relationship Specialty Start Date End Date Pcp, No [address] [place] [address] PCP - General Family Medicine 10/02/23 documented as of this encounter
--- OUTSIDE RECORDS SUMMARY | 2025-02-16 08:43 | XMS_ITS | Encounter Summary ---
Author Organization [employer] ([place], [place], [place], [place]) Address [address] [place] [address] Care Team Providers Care Periodontist Name Role Phone Unavailable Primary Care Provider Unavailabl e Encounter Details Date Type Department Care Team (Late st Contact Info) Description 10/03/2020 Transcribed Document [facility] Family Medicine [facility] [place] [address] ProviderAna MD [facility] [place] [address] Social History Tobacco Use Types [...] PROCEDURE: Standard left heart catheterization technique. A 5/6-Maldivian sheath was placed into the left distal [...] Risk factor modification, medical management is recommended. /[id number] Nilay Johnson MD SSL/AQ / SSL / MODL /[id number] CC: Dr. Adam Pandya MD documented in this encounter Plan of Treatment Not on file documented as of this encounter Visit Diagnoses Not on filedocumented in this encounter
--- OUTSIDE RECORDS SUMMARY | 2025-02-16 08:43 | XMS_ITS | Encounter Summary ---
Author Organization [employer] ([place], [place], [place], [place]) Address [address] [place] [address] Care Team Providers Care Score Caller Name Role Phone Unavailable Primary Care Provider Unavailabl e Encounter Details Date Type Department Care Team (Late st Contact Info) Description 10/03/2020 Transcribed Document [facility] Family Medicine [facility] [place] [address] ProviderAna [place] [facility] [place] [address] Social History Tobacco Use Types [...] Don Persaud RN - 10/03/2020 14:54 EDT Electronically signed by Mechelle Bojorquez Conversion Overhead Distribution Engineer Cerner at 09/15/2022 2:49 PM CDT documented in this encounter Plan of Treatment Not on file documented as of this encounter Visit Diagnoses Not on filedocumented in this encounter
--- OUTSIDE RECORDS SUMMARY | 2025-02-16 08:43 | XMS_ITS | Encounter Summary ---
Author Organization [employer] ([place], [place], [place], [place]) Address [address] [place] [address] Care Team Providers Care Pharmacy Data Analyst Name Role Phone Unavailable Primary Care Provider Unavailabl e Encounter Details Date Type Department Care Team (Late st Contact Info) Description 10/03/2020 Transcribed Document [facility] Family Medicine [facility] [place] [address] ProviderAna MD [facility] [place] [address] Social History Tobacco Use Types [...] Wells MD - 10/03/2020 2:45 PM CDT [facility] [place] [address] SANJEEV NOWAK :1940 Visit Time:10/03/2020 [...] persists, seek medical attention Pickup at Medicine [facility] aspirin (aspirin 81 mg oral [...] Capsule(s) Oral Every Day Pharmacy Information [facility]: [address] [place] [phone] Take your medications faithfully. Do NOT skip [...] you are awake and alert. ??? Take biwa-vye-lualnok and prescription medicines only as told by [...] provider. Document Revised: 04/29/2018 Document Reviewed: 09/05/2016 [employer] Patient Education ?? 2020 [employer] FAQ ??? Patient COVID-19 testing Why [...] through the local health department and the [place] Department for Public Health. Those organizations are [...] and need to call 911, notify the byproducts pump operator that you have, or think you [...] clean your hands with an alcohol-based hand orange picker that contains at least 60% alcohol. Clean your hands often. ??? Wash hands: Wash your hands often with soap and water for at least 20 seconds when visibly dirty. This is especially important after blowing your nose, coughing or sneezing, and going to the bathroom, and before eating or preparing food. ??? Hand orange picker: Use an alcohol-based hand orange picker with at least 60% alcohol, covering all [...] and water or put them in the manager support. Clean all high-touch surfaces every day. Clean [...] or body fluids on them. ??? Household splash line operator and disinfectants: Clean the area or item [...] list of disinfectants can be found here: https://www.epa.gov/pesticide-registration/zyww-v-anirjzmagizie-lzs-qhnbfyk-ky rs-cov-2 Radial Site Care This sheet gives [...] these instructions at home: Medicines ??? Take iglw-hwo-xvgiixx and prescription medicines only as told by your health care provider. Insertion site care ??? Follow instructions from your health care provider about how to take care of your insertion site. Make sure you: ? Wash your hands with soap and water before you change your bandage (dressing). If soap and water are not available, use hand orange picker. ? Change your dressing as told by [...] including vitamins, herbs, eye drops, creams, and rsdm-gjl-lwqbmvj medicines. ??? Any problems you or family [...] tells you to take them. ??? Taking rruy-wlv-gunvebu medicines, vitamins, herbs, and supplements. Exams and [...] provider. Document Revised: 04/10/2019 Document Reviewed: 04/10/2019 [employer] Patient Education ?? 2020 [employer]ice. nitroglycerin (oral/sublingual) (JEOVANNY nnekae GLI ser in [...] may report side effects to FDA at 4-434-IGU-3530. What other drugs will affect nitroglycerin? Tell your doctor about all your current medicines, especially: ?? aspirin, heparin; ?? medicine used to treat blood clots; ?? blood pressure medication; or ?? ergot medicine--dihydroergotamine, ergotamine, ergonovine, methylergonovine. This list is not complete and many other drugs may affect nitroglycerin. This includes prescription and khnu-ghh-vxzugpz medicines, vitamins, and herbal products. Not all [...] to ensure that the information provided by [employer]PS. ('[employer]') is accurate, up-to-date, and complete, but no guarantee is made to that effect. Drug information contained herein may be time sensitive. [employer] information has been compiled for use by healthcare practitioners and consumers in the [place] and therefore [employer] does not warrant that uses outside of the [place] are appropriate, unless specifically indicated otherwise. [employer] drug information does not endorse drugs, diagnose patients or recommend therapy. [employer] drug information is an informational resource designed [...] effective or appropriate for any given patient. [employer] does not assume any responsibility for any aspect of healthcare administered with the aid of information [employer] provides. The information contained herein is not intended to cover all possible uses, directions, precautions, warnings, drug interactions, allergic reactions, or adverse effects. If you have questions about the drugs you are taking, check with your doctor, nurse or pharmacist. Copyright 2603-1762 [employer]. Version: 15.01. Revision Date: 04/06/2019. atorvastatin (a [...] may report side effects to FDA at 6-663-VSD-3320. What other drugs will affect atorvastatin? Certain [...] may affect atorvastatin. This includes prescription and yoym-tyv-apzvxgy medicines, vitamins, and herbal products. Not all [...] to ensure that the information provided by [employer]PS. ('[employer]') is accurate, up-to-date, and complete, but no guarantee is made to that effect. Drug information contained herein may be time sensitive. [employer] information has been compiled for use by healthcare practitioners and consumers in the [place] and therefore [employer] does not warrant that uses outside of the [place] are appropriate, unless specifically indicated otherwise. [employer] drug information does not endorse drugs, diagnose patients or recommend therapy. [employer] drug information is an informational resource designed [...] effective or appropriate for any given patient. [employer] does not assume any responsibility for any aspect of healthcare administered with the aid of information [employer] provides. The information contained herein is not intended to cover all possible uses, directions, precautions, warnings, drug interactions, allergic reactions, or adverse effects. If you have questions about the drugs you are taking, check with your doctor, nurse or pharmacist. Copyright 7413-0682 [employer]. Version: 22.. Revision Date: 07/09/2020. Emergency Awareness [...] Assistance with quitting is available by contacting 2-826-IYZMNOW. This is a free resource providing counseling, [...] was given the opportunity to ask questions. Patient/Hat Body Inspector Name: Patient/Hat Body Inspector Signature: Relationship to Patient: Clinician/Hospital Hat Body Inspector Signature: Date: documented in this encounter Plan of Treatment Not on file documented as of this encounter Visit Diagnoses Not on filedocumented in this encounter
--- OUTSIDE RECORDS SUMMARY | 2025-02-16 08:43 | XMS_ITS | Clinical Summary ---
Author Organization Healthcare Address [address] [place] [address] Care Team Providers Care Machine Compositor Name Role Phone Pcp, No Primary Care [...] Medical Office Building Surgical Specialties [address] [facility], [address] [place] [address] Juan Zheng MD [address] [address] Health Maintenance Due Date Last Done Comments [facility]-Depression Screening 1940 [facility]-Infant/Child/Adol SDOH Screenings 1940 [facility]- SDOH Screenings 09/05/1957 [facility]-Adult SDOH Screenings 09/05/1957 [facility]-RSV Vaccine: 60+ Years or (1 - 1-dose 75+ series) 09/05/2014 [facility]-Zoster Vaccines (3 of 3) 07/29/2018 06/03/2018, 07/24/2009 [facility]-Medicare Annual Wellness (AWV) 09/23/2023 09/22/2022 [id number] Vaccine ( - season) 2025 03/13/2024, 12/25/2021, [...] complete this topic Insurance MEDICARE Care Teams Machine Compositor Relationship Specialty Start Date End Date Pcp, Xoimara [address] [place] [address] PCP - General Family Medicine 10/02/23
--- OUTSIDE RECORDS SUMMARY | 2025-02-16 08:43 | XMS_ITS | Encounter Summary ---
Author Organization [employer] ([place], [place], [place], [place]) Address [address] [place] [address] Care Team Providers Care Manager Business Planning Name Role Phone Unavailable Primary Care Provider Unavailabl e Encounter Details Date Type Department Care Team (Late st Contact Info) Description 10/03/2020 Transcribed Document [facility] Family Medicine [facility] [place] [address] ProviderAna MD [facility] [place] [address] Social History Tobacco Use Types [...] 1940 Associated Diagnoses: None Author: WALESKA JOHNSON MD-[facility] Basic Information Forge Shop Machine Repairer: Monica Lamb MD Chief Complaint Angina; worsening Abnormal Stress 02/27/2020 History of Present Illness 80 year old male with history of Mild CAD per [facility] (2010), HTN, HLD, COPD with remote tobacco [...] the ER. He would like to have [facility] at this time. 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 Social & Psychosocial Habits Past Medical History: Active CAD - Coronary artery disease ([id number]) COPD - Chronic obstructive pulmonary disease (974352869) HLD - Hyperlipidemia (706470056) HTN - Hypertension (3374582225) Family History: No family history items have [...] of motion, Normal strength. Integumentary: Warm, Dry, [place]. Neurologic: Alert, Oriented. Psychiatric: Cooperative, Appropriate mood & affect. Review / Management Results review: No qualifying data available. Documentation reviewed: Records from referring physician, Reviewed prior records. Impression and Plan IMPRESSION: Recurrent limiting CP. Abnormal Lexiscan cardiolite: Inferior ischemia, EF 51%. Remote Mild CAD per [facility] (2010); R brachial A tortuosity preventing completion [...] w/ primary MD. Electronically signed by [place], [facility] Conversion Truck Crane Operator Helper Cerner at 09/15/2022 3:02 PM CDT documented in this encounter Plan of Treatment Not on file documented as of this encounter Visit Diagnoses Not on filedocumented in this encounter
--- OUTSIDE RECORDS SUMMARY | 2025-02-16 08:43 | XMS_ITS | Encounter Summary ---
Author Organization [employer] ([place], [place], [place], [place]) Address [address] [place] [address] Care Team Providers Care Web Ui Developer Name Role Phone Unavailable Primary Care Provider Unavailabl e Encounter Details Date Type Department Care Team (Late st Contact Info) Description 10/03/2020 Transcribed Document [facility] Family Medicine [address] [place] [address] ProviderAna [place] [address] Social History Tobacco Use Types [...] : N/A Warfarin Discharge Ins : N/A Don Persaud RN - 10/03/2020 14:16 EDT documented in this encounter Plan of Treatment Not on file documented as of this encounter Visit Diagnoses Not on filedocumented in this encounter
--- OUTSIDE RECORDS SUMMARY | 2025-02-16 08:43 | XMS_ITS | Encounter Summary ---
Author Organization [employer] ([place], [place], [place], [place]) Address [address] [place] [address] Care Team Providers Care Agile Project Manager Name Role Phone Unavailable Primary Care Provider Unavailabl e Encounter Details Date Type Department Care Team (Late st Contact Info) Description 10/03/2020 Transcribed Document [facility] Family Medicine [facility] [place] [address] ProviderAna MD [facility] [place] [address] Social History Tobacco Use Types [...] Source : Stated Height Entry Format : [place] Height, Feet : 6 ft(Converted to: 183 cm, 72 Inch) Height, Inches : 0 Inch(Converted to: 0 ft 0 Inch, 0.00 cm) Clinical Height : 182.88 cm Weight Source : Standing scale Weight Entry Format : [place] Clinical Dosing Weight : 79.55 kg Weight, Pounds : 175 lb Body Surface Area (BSA) : 2.01 m2 Body Mass Index : 23.8 kg/m2 [place] Body Weight : 77 kg Don Persaud RN - 10/03/2020 10:49 EDT Health Histories Smoking Status : Former smoker, quit more than 30 days ago Smokeless Tobacco Status : Never Implant/Device Type, Contact Worker and Model : none Don Persaud RN [...] Don Persaud RN - 10/03/2020 10:49 EDT [place] Suicide Severity Rating Scale (C-SSRS) CSSRS Past [...] 10/03/2020 10:49 EDT General Info Support Person/Patient Applied Technologist : Yes Support Person/Pt Rep Name : Eleno Support Person/Pt Rep Contact Information : [phone] Want Family/Rep/Phys Notified of Admit : No Emergency Contact #1 : Eleno Nowak Emergency Contact #1 Emergency Contact #1 Relationship : son Emergency Contact #2 : na Emergency Contact #2 Phone Number : na Emergency Contact #2 Relationship : na Chief Complaint : chest pain Information Obtained From : Patient Primary Language : Indian Communication Barrier : None Title I Coordinator Needed : No Don Persaud RN - [...] Mental Status : Oriented to own ability Watson Fall Risk Score : 60 WATSON Fall Scale Risk Level : 46 or > High Risk [place] Fall Interventions : Adequate lighting, Assistive devices [...] Don Persaud RN - 10/03/2020 10:49 EDT [place] Coma [place] Best Motor Response : Obey commands [place] Best Verbal Response : Oriented [place] Eye Opening Response : Spontaneous [place] Coma Score : 15 Don Persaud RN - 10/03/2020 10:49 EDT documented in this encounter Plan of Treatment Not on file documented as of this encounter Visit Diagnoses Not on filedocumented in this encounter
--- OUTSIDE RECORDS SUMMARY | 2025-02-16 08:43 | XMS_ITS | Encounter Summary ---
Author Organization Healthcare Address [address] [place] [address] Care Team Providers Care Melter Helper Name Role Phone Pcp, No Primary Care Provider Unavailabl e Encounter Details Date Type Department Care Team (Late Contact Info) Description 10/12/2023 Lab Requisition [facility] [address] [place] [address] Lui Romeo MD [address] [place] [address] Encounter for general adult medical [...] [facility], [address] [place] [address] Juan Zheng MD [facility] [address] documented as of this encounter Procedures Procedure [...] by MALDI tof mass spectrometry using the [employer] database and is for research use only. Culture Alistipes species(A) 09/28 11:42 AM EDT [facility] Comment: This result was determined by MALDI tof mass spectrometry using the [employer] database and is for research use only. Note: - final ID= Alistipes putredinis Blood 10/02/2023 9:02 AM EDT 10/12/2023 10:47 AM EDT us Lui Romeo MD LAB MICROBIOLOGY - GENERAL OR DERABLES Final Result [facility] [address] [place] [address] documented in this encounter Visit Diagnoses Diagnosis Encounter for general adult medical examination without abnormal findings documented in this encounter Care Teams Melter Helper Relationship Specialty Start Date End Date Pcp, No [address] [place] [address] PCP - General Family Medicine 10/02/23 documented as of this encounter
--- OUTSIDE RECORDS SUMMARY | 2025-02-16 08:43 | XMS_ITS | Encounter Summary ---
Author Organization [facility] Address [address] [place] [address] Care Team Providers Care Storage Battery Tester Name Role Phone Christofer William FUR SEWER Primary Care Provi blanca Encounter Details Date Type Department Care Team (Late st Contact Info) Description 10/09/2024 Results Follow-Up [facility] [address] [place] [address] Marii Pandya MD [address] [place] [address] Social History Tobacco Use Types [...] Description 02/19/2025 2:15 PM EDT Office Visit [facility] [address] [place] [address] Anuradha Garcia APRN [address] [place] [address] 03/05/2025 1:30 PM EDT Office Visit [facility] [place] [id number] Diego Macedo MD [address] [address] documented as of this encounter Visit Diagnoses Not on filedocumented in this encounter Care Teams Storage Battery Tester Relationship Specialty Start Date End Date Christofer William APRN [address] [place] [address] [place] [address] PCP - General Nurse Practitioner 05/04/22 documented as of this encounter
--- OUTSIDE RECORDS SUMMARY | 2025-02-16 08:43 | XMS_ITS | Encounter Summary ---
Author Organization [employer] ([place], [place], [place], [place]) Address [address] [place] [address] Care Team Providers Care Patient Accounting Representative Name Role Phone Unavailable Primary Care Provider Unavailabl e Encounter Details Date Type Department Care Team (Late st Contact Info) Description 10/03/2020 Transcribed Document [facility] [place] [facility] [place] [address] ProviderAna MD [address] [place] [address] Social History Tobacco Use Types [...] you are awake and alert. ??? Take jaqy-qeb-ixbqzfw and prescription medicines only as told by [...] provider. Document Revised: 04/29/2018 Document Reviewed: 09/05/2016 [employer] Patient Education ? 2020 [employer]. FAQ - Patient COVID-19 testing Why do [...] through the local health department and the [place] Department for Public Health. Those organizations are [...] and need to call 911, notify the treadle cut off saw operator that you have, or think you [...] clean your hands with an alcohol-based hand lime plant operator that contains at least 60% alcohol. Clean your hands often. ??? Wash hands: Wash your hands often with soap and water for at least 20 seconds when visibly dirty. This is especially important after blowing your nose, coughing or sneezing, and going to the bathroom, and before eating or preparing food. ??? Hand lime plant operator: Use an alcohol-based hand lime plant operator with at least 60% alcohol, covering all [...] and water or put them in the master naval parachutist. Clean all high-touch surfaces every day. Clean [...] or body fluids on them. ??? Household owner/operator and disinfectants: Clean the area or item [...] list of disinfectants can be found here: https://www.epa.gov/pesticide-registration/ztbx-u-syfrmwfrstlut-zov-rgrqnsj-oa rs-cov-2 Radial Site Care This sheet gives [...] these instructions at home: Medicines ??? Take zvau-cjs-junkkss and prescription medicines only as told by your health care provider. Insertion site care ??? Follow instructions from your health care provider about how to take care of your insertion site. Make sure you: ? Wash your hands with soap and water before you change your bandage (dressing). If soap and water are not available, use hand lime plant operator. ? Change your dressing as told by [...] provider. Document Revised: 06/22/2018 Document Reviewed: 06/22/2018 [employer] Patient Education ? 2020 [employer]. Transradial Angiogram A transradial angiogram is an [...] including vitamins, herbs, eye drops, creams, and wgps-lac-vbktkwh medicines. ??? Any problems you or family [...] tells you to take them. ??? Taking fcvr-ujq-vbczjle medicines, vitamins, herbs, and supplements. Exams and [...] provider. Document Revised: 04/10/2019 Document Reviewed: 04/10/2019 [employer] Patient Education ? 2020 [employer] documented in this encounter Plan of Treatment Not on file documented as of this encounter Visit Diagnoses Not on filedocumented in this encounter
--- OUTSIDE RECORDS SUMMARY | 2025-02-16 08:44 | XMS_ITS | Referral Summary ---
Author Organization [employer] ([place], [place], [place], [place]) Address [address] [place] [address] Care Team Providers Care Cs Associate Name Role Phone Unavailable Primary Care Provider [...]
--- OUTSIDE RECORDS SUMMARY | 2025-02-16 08:44 | XMS_ITS | Clinical Summary ---
Author Organization [employer] ([place], [place], [place], [place]) Address [address] [place] [address] Care Team Providers Care Retail Customer Service Representative Name Role Phone Unavailable Primary Care [...]
--- OUTSIDE RECORDS SUMMARY | 2025-02-16 08:44 | XMS_ITS | Clinical Summary ---
Author Organization [facility] Address [address] [place] [id number] Care Team Providers Care Stitch Bonding Machine Tender Helper Name Role Phone Christofer William TEENAGE PROGRAM DIRECTOR Primary Care Provi blanca Allergies Active Allergy [...] by mouth Daily. 5 Active nystatin (MYCOSTATIN) 270274 UNIT/GM cream apply to the affected area(s) [...] 2:22 PM EDT): He was admitted to [facility] on 02/25/2024 with shortness of breath after [...] Description 02/19/2025 2:15 PM EDT Office Visit [facility] [address] [place] [address] Anuradha Garcia APRN [address] [place] [address] 03/05/2025 1:30 PM EDT Office Visit [facility] [address] [place] [id number] Diego Macedo MD [address] [id number] Health Maintenance Due Date Last Done Comments RSV Vaccine - Adults (1 - 1- dose 75+ series) 09/05/2014 ANNUAL WELLNESS VISIT 09/23/2023 09/22/2022 INFLUENZA VACCINE 12/29/2024 03/13/2024, , 02/24/2022, Additional history exists COVID-19 Vaccine (2023-2 5 season) 2025 03/13/2024, 12/25/2021, 03/03/2021, Additional history exists TDAP/TD VACCINES (4 - Td or Tdap) 09/22/2032 09/22/2022, 03/30/2012, 02/26/2003 Pneumococcal Vaccine 50+ Completed 017, 10/01/2014, 06/24/2007 ZOSTER VACCINE Completed 06/03/2018, 12/29, 07/24/2009 Procedures Procedure Name Priority Date/Time Associated Diagnosis Comments SCANNED - LABS 11/24/2024 from Last 3 Months Results * LABS SCANNED (11/24/2024) us Marii Pandya MD LAB BLOOD ORDERABLES Final R esult from Last [address] [place] [address] [employer] PPO Care Teams Stitch Bonding Machine Tender Helper Relationship Specialty Start Date End Date Christofer William APRN [address] [facility] [place] [address] PCP - General Nurse Practitioner 05/04/22
--- NOTE | 2025-02-16 09:00 | US_ITS ---
FINAL REPORT CLINICAL HISTORY: ZHOU WILKERSON -- LT THYROID NODULE FINDINGS: Ultrasound guided thyroid biopsy. HISTORY: Left thyroid mass. Attending radiologist: Dr. Weinstein Physician Box Nailer: Zhou Pablo PA-C PROCEDURE: After informed consent was obtained and a time-out was performed, the patient was prepped and draped in usual sterile fashion over the left neck. Utilizing local anesthesia and sterile technique with a 25-gauge needle, access to lesion was obobtained. A total of 4 passes were made under direct ultrasound guidance. The patient received no conscious sedation. The patient tolerated procedure well and left the department in good condition. IMPRESSION: Status post ultrasound guided biopsy of thyroid without immediate complication. Reviewed, Interpreted and Dictated by Mima Weinstein MD Transcribed by ROCK Michele Authenticated and [facility]
== END 2025-02-16 23:59 | disposition home or self-care (01) ==
LOC: RAD 08:41
PROVIDERS: PCP Nurse Practitioner Family; Visit Provider Student in an Organized Health Care Education/Training Program
DX: E04.1 Nontoxic single thyroid nodule (principal)
CPT/HCPCS: 10005